=== PATIENT | female | born 1995 | race Caucasian/White ===

== ENCOUNTER → 2017-12-10 13:21 | Outpatient (CLI) | payer SELFPAY ==
[2017-12-10 15:52] LABS: Hematocrit 33.5 % (37-47); Hemoglobin 11.2 g/dl (12.0-15.0); Mean Corp Hgb Conc 33.4 g/gl (32-36); Mean Corpuscular Hgb 32.5 pg (27.0-32.0); Mean Corpuscular Volume 97.1 fL (81-99); Mean Platelet Vol. 9.9 fl (6.2-12.0); Platelet Count 201 K/mm3 (150-450); RBC Distribution Width CV 12.8 % (11.6-14.6); RBC Distribution Width SD 43.2 fl (35.1-43.9); Red Blood Count 3.45 M/mm3 (4.2-5.4); White Blood Count 6.4 K/mm3 (4.4-11.0)
[2017-12-10 15:55] LABS: Scan Indicated on CBC? Y/N NO
[2017-12-10 16:13] LABS: Glucose Challenge Gest 1H 50g 124 mg/dL (70-140)
== END ==
PROVIDERS: Visit Provider Obstetrics & Gynecology
DX: Z34.83 Encounter for supervision of other normal pregnancy, third trimester (principal)
CPT/HCPCS: 36415; 82950; 85027; 87077; 87086; 87088

== ENCOUNTER → 2018-01-22 10:45 | Outpatient (CLI) | payer SELFPAY ==
--- NOTE | 2018-01-22 10:45 | DT_ITS ---
This patient was seen during an EMR downtime January 21, 2018 - January 28, 2018. This patient may have a combination of paper and electronic documentation or all paper documentation. All documentation is viewable within the e-chart portion of [employer] for each patient visit.
[2018-01-25 13:27] LABS: Group B Strep DNA By PCR Negative (Negative); Internal Control PASS; Probe Check PASS; Specimen Processing Control PASS
== END ==
PROVIDERS: Visit Provider Obstetrics & Gynecology
DX: Z36.85 Encounter for antenatal screening for Streptococcus B (principal)
CPT/HCPCS: 87081; 87653

== ENCOUNTER 2018-02-23 23:30 | Inpatient (IN) | payer SELFPAY ==
[2018-02-23 21:15] VITALS: BMI 23.6
[2018-02-23 21:22] LABS: ROM Internal Control Test YES-OK TO RESULT pt. (Internal QC); ROM Patient Test Negative (Negative)
[2018-02-24] MEDS: Lactated Ringers 1,000 ML 50 ML IV ×2 (00:11→08:02)
[2018-02-24 00:25] LABS: ROM Internal Control Test YES-OK TO RESULT pt. (Internal QC); ROM Patient Test Negative (Negative)
[2018-02-24 00:34] LABS: Hematocrit 38.2 % (37-47); Hemoglobin 12.9 g/dl (12.0-15.0); Mean Corp Hgb Conc 33.8 g/gl (32-36); Mean Corpuscular Hgb 31.9 pg (27.0-32.0); Mean Corpuscular Volume 94.6 fL (81-99); Mean Platelet Vol. 9.9 fl (6.2-12.0); Platelet Count 202 K/mm3 (150-450); RBC Distribution Width CV 13.1 % (11.6-14.6); RBC Distribution Width SD 45.6 fl (35.1-43.9); Red Blood Count 4.04 M/mm3 (4.2-5.4); Scan Indicated on CBC? Y/N NO; White Blood Count 7.1 K/mm3 (4.4-11.0)
--- NOTE | 2018-02-24 01:23 | PCM.PN.BLA ---
Progress Note LABOR PROGRESS NOTE No complaints. Indicates prefers not to have pitocin. AVSS GEN - NAD, AAO x 3 FHR 120, moderate variability, + accelerations, no decelerations TOCO 0/10 min SVE 4/70/-3, soft, posterior, cephalic A/P: 22yo G1 @ 39 5/7wga for IOL for intermittent decelerations, Cat I FHR now. -Maternal and statuses reassuring -Membranes stripped as an alternative. Following discussion pt agrees to pitocin if no cervical change or consistent contractions in 2 hours. -If has SROM, may observe for 6 hours for labor to ensue prior to starting pitocin.
[2018-02-24] MEDS: 0.9% Saline Lock 10 ML Syringe IV ×2 (01:28→14:00)
[2018-02-24] MEDS: Oxytocin 30 units/NS 500 ml 30 UNITS/500 ML IV.SOLN IV (05:40)
--- NOTE | 2018-02-24 09:59 | PCM.PN.BLA ---
Progress Note LABOR PROGRESS NOTE Relates contractions are mild, she does not feel all of them. AVSS GEN - NAD, AAO x 3 FHR 140, moderate variability, + accelerations, no decelerations. TOCO 4-5/10 min SVE 5/75/-3, soft and posterior A/P: 22yo G1 @ 39 6/7wga, labor augmentation with pitocin, Cat I FHR -Continue pitocin as tolerated by mother and fetus -Amniotomy performed with clear fluid - and maternal status reassuring
[2018-02-24] MEDS: Oxytocin 30 units/NS 500 ml 30 UNITS/500 ML IV.SOLN 334 UNITS IV (11:55)
--- NOTE | 2018-02-24 12:11 | PCM.OB.VAG ---
- Problem List (1) 39 weeks gestation of Status: Acute (2) (spontaneous vaginal delivery) Status: Acute Vaginal Delivery Maternal Presentation: Medically Indicated Induction, - - Intermittent FHR decelerations present Method of Induction: Pitocin, Amniotomy Amniotic Membrane Rupture Type: Artificial Rupture of Membrane time: 02/24/18 0850h Amniotic Fluid Description: Clear Final JASON: 02/26/18 Final JASON Source: US <20 weeks Gestational age: 39 Weeks and 6 Days Date of Procedure: 02/24/18 Pre-Operative Diagnosis: 39 5/7wga Post-Operative Diagnosis: 39 5/7wga, Description of Procedure: Patient was FD/+ 4 station on my arrival with bulging perineum. She pushed to deliver a vigorous male infant in SHANTANU. The was placed on the maternal abdomen and further attended by nursery personnel. The cord was doubly clamped and cut at approximately 4 minutes of life. The placenta delivered spontaneously and appeared intact on inspection. A first degree perineal laceration with vaginal extension was repaired with 3-0 Vicryl Rapide with hemostasis attained following injection of 10cc of 1% lidocaine. Sponge and needle counts were correct x 2. weight 3513g Presentation: Vertex Placenta Disposition: [facility] Cord Vessel Description: 3 Vessels Cord Entanglement: None Estimated Blood Loss: 300 ml Infant A gender: Male (1 minute): 8 (5 minute): 9 Episiotomy Description: None Laceration: None Medications given after delivery: IV Pitocin Complications: None
--- NOTE | 2018-02-24 12:20 | DCINST_ITS ---
Discharge Diet: No Restrictions Discharge Activity: Return to Normal Activity, May Shower, May Take a Tub Bath May resume sexual activity in: 6 weeks Additional Activity Instructions:: Nothing in the vagina for 4-6 weeks. You may return to work/school in 6 weeks. Call your doctor if you observe: Fever of 101 or Higher, Inability to urinate, Inability to have a bowel movement, Using more than one pad per hour, Shortness of breath, Chest pain, Calf discomfort, Uncontrolled pain Additional Instructions: If you experience any of the following, contact your healthcare provider. * Bleeding that soaks a pad every hour for 2 hours * Fever 100.4 or higher * Unrelieved incision or abdominal pain * Swelling, redness, discharge or bleeding from your incision or episiotomy site * Your incision begins to separate * Problems urinating (including inability to urinate or burning while urinating) . * Visual changes * Severe headache * Flu-like symptoms * Pain or redness in one of both of your breasts * Pain, warmth, tenderness or swelling in your legs, especially the calf area * Frequent nausea and vomiting * Symptoms of depression or anxiety If you experience any of the following, call 911 or go to the nearest Emergency Room. * Chest pain * Problems breathing * Seizure activity * Partial or complete paralysis of a body part, slurred speech, weakness or drooping of the face, or a sudden inability to walk or hold your balance Allergies/Adverse Reactions: Allergies No Known Allergies Allergy (Verified 02/23/18 20:53) Medications to take at Discharge Vits [Prenatabs FA] 1 tablet PO DAILY 02/23/18 Ibuprofen 600 mg PO TID PRN #30 tab 02/24/18 The following prescriptions were given: Ibuprofen 600 mg PO TID PRN #30 tab PRN Reason: Pain Please Follow Up With: Cora Rangel MD When: 6 weeks Primary Care Physician: Care Physician,No Primary [Primary Care Provider] - Test Results: Test results from this visit will be discussed in further detail at your follow- up appointment, if applicable.
[2018-02-24] MEDS: Oxytocin 30 units/NS 500 ml 30 UNITS/500 ML IV.SOLN 167 UNITS IV (12:25)
[2018-02-24 16:12] VITALS: BP 118/59; PULSE 77; RESP 18; TEMP 36.9; O2SAT 98
[2018-02-24 20:00] VITALS: BP 127/79; PULSE 92; RESP 16; TEMP 37
[2018-02-24 23:21] VITALS: BP 113/72; PULSE 86; RESP 16; TEMP 37.3
[2018-02-25 04:05] VITALS: BP 114/65; PULSE 84; RESP 16; TEMP 36.8
--- NOTE | 2018-02-25 08:06 | PCM.PN.OB ---
Patient Problems: Active and Suspected Problems 39 weeks gestation of (Acute) (spontaneous vaginal delivery) (Acute) Subjective: No issues overnight. Infant is nursing well. Pain is minimal and lochia is moderate. No complaints. Objective: avss - Physical Exam General: Alert, Oriented x3, Cooperative, No apparent distress HEENT: Atraumatic, Normocephalic Lungs: Clear to auscultation, Normal air movement Cardiovascular: Regular rate, Regular Rhythm, Normal S1, Normal S2, No murmurs Abdomen: Soft, Non Tender, Non-Distended, - - Fundus firm and nontender, lochia moderate Extremities: No edema, No Calf Tenderness Neurological: Neuro grossly intact Psych/Mental Status: Normal Affect, Appropriate, Alert and oriented to time, place, person, mood and affect Vital Signs Temp Pulse Resp BP Pulse Ox 98.2 F 84 16 114/65 98 02/25/18 04:05 02/25/18 04:05 02/25/18 04:05 02/25/18 04:05 02/24/18 16:12 Oxygen Delivery Method Room Air Weight: 68.4 kg Body Mass Index (BMI) 23.6 Intake and Output for Last 24 Hours 02/23/18 02/24/18 02/25/18 23:59 23:59 23:59 Intake Total 2312 / 2312 Output Total 2350 / 2350 Balance -38 / -38 Medical Necessity - Tobacco Use Smoking Status: Never smoker Assessment/Plan All Active Problems 39 weeks gestation of (Acute) (spontaneous vaginal delivery) (Acute) 22yo PPD#1 s/p doing well. -Rh positive, RPR nr, HBsAg neg -Routine care - -May consider d/c home today if infant cleared for discharge and HIV, Rub, Hep C studies returned
[2018-02-25 08:15] VITALS: BP 120/73; PULSE 82; RESP 16; TEMP 37.1; O2SAT 95
[2018-02-25 10:27] LABS: HIV - WCH Non-Reactive (Nonreactive); Rubella IgG 240.8 IU/mL
[2018-02-25] MEDS: Prenatal Vits Tablet 1 TABLET PO (12:41)
[2018-02-25 13:49] VITALS: BP 107/61; PULSE 77; RESP 18; TEMP 37; O2SAT 98
[2018-02-25 19:30] VITALS: BP 113/65; PULSE 64; RESP 18; TEMP 36.8; O2SAT 98
[2018-02-26 01:57] VITALS: BP 110/71; PULSE 71; RESP 16; TEMP 36.8; O2SAT 97
--- NOTE | 2018-02-26 08:22 | PCM.PN.OB ---
Patient Problems: Active and Suspected Problems 39 weeks gestation of (Acute) (spontaneous vaginal delivery) (Acute) Subjective: No issues overnight and no obstetrician gynecologist complaints. Infant continues to nurse well. Kerry denies heavy lochia or discomfort. Objective: AVSS - Physical Exam General: Alert, Oriented x3, Cooperative HEENT: Atraumatic, Normocephalic Lungs: Clear to auscultation, Normal air movement Cardiovascular: Regular rate, No murmurs Abdomen: Soft, Non Tender, Non-Distended, - - fundus firm and nontender Extremities: No edema, No Calf Tenderness Neurological: Neuro grossly intact Psych/Mental Status: Normal Affect, Appropriate, Alert and oriented to time, place, person, mood and affect Vital Signs Temp Pulse Resp BP Pulse Ox 98.2 F 71 16 110/71 97 02/26/18 01:57 02/26/18 01:57 02/26/18 01:57 02/26/18 01:57 02/26/18 01:57 Oxygen Delivery Method Room Air Weight: 68.4 kg Body Mass Index (BMI) 23.6 Intake and Output for Last 24 Hours 02/24/18 02/25/18 02/26/18 23:59 23:59 23:59 Intake Total 2312 / 2312 Output Total 2350 / 2350 Balance -38 / -38 Laboratory Tests Past 24 Hrs 02/24/18 00:11 HIV 1&2 Antibody Non-Reactive Rubella IgG Antibody 240.8 Medical Necessity - Tobacco Use Smoking Status: Never smoker Assessment/Plan All Active Problems 39 weeks gestation of (Acute) (spontaneous vaginal delivery) (Acute) 22yo PPD#2 s/p doing well. -Rh positive, RPR nr, HBsAg neg -Routine care - -HIV neg, Rubella immune -Will d/c home
--- NOTE | 2018-02-26 08:25 | PN.OBGYN_ITS ---
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 Infant continues to nurse well. Kerry denies heavy lochia or discomfort. Objective: AVSS - Physical Exam General: Alert, Oriented x3, Cooperative HEENT: Atraumatic, Normocephalic Lungs: Clear to auscultation, Normal air movement Cardiovascular: Regular rate, No murmurs Abdomen: Soft, Non Tender, Non-Distended, - - fundus firm and nontender Extremities: No edema, No Calf Tenderness Neurological: Neuro grossly intact Psych/Mental Status: Normal Affect, Appropriate, Alert and oriented to time, place, person, mood and affect Vital Signs Temp Pulse Resp BP Pulse Ox 98.2 F 71 16 110/71 97 02/26/18 01:57 02/26/18 01:57 02/26/18 01:57 02/26/18 01:57 02/26/18 01:57 Oxygen Delivery Method Room Air Weight: 68.4 kg Body Mass Index (BMI) 23.6 Intake and Output for Last 24 Hours 02/24/18 02/25/18 02/26/18 23:59 23:59 23:59 Intake Total 2312 / 2312 Output Total 2350 / 2350 Balance -38 / -38 Laboratory Tests Past 24 Hrs 02/24/18 00:11 HIV 1&2 Antibody Non-Reactive Rubella IgG Antibody 240.8 Medical Necessity - Tobacco Use Smoking Status: Never smoker Assessment/Plan All Active Problems 39 weeks gestation of (Acute) (spontaneous vaginal delivery) (Acute) 22yo PPD#2 s/p doing well. -Rh positive, RPR nr, HBsAg neg -Routine care - -HIV neg, Rubella immune -Will d/c home
[2018-02-26 08:31] LABS: Hep C Antibodies 0.2 s/co ratio (0.0-0.9)
[2018-02-26 09:35] VITALS: BP 108/58; PULSE 72; RESP 18; TEMP 36.8
[2018-02-26] MEDS: Prenatal Vits Tablet 1 TABLET PO (12:37)
[2018-02-26 13:21] VITALS: BP 119/71; PULSE 79; RESP 16; TEMP 36.3
== END 2018-02-26 14:20 | disposition home or self-care (01) | DRG 775 ==
LOC: WPOUT 23:38
PROVIDERS: Admitting Provider Obstetrics & Gynecology; Visit Provider Obstetrics & Gynecology
DX: O76 Abnormality in fetal heart rate and rhythm complicating labor and delivery (principal); O70.0 First degree perineal laceration during delivery; Z3A.39 39 weeks gestation of pregnancy; Z37.0 Single live birth
CPT/HCPCS: 59025; 59050; 76815; 84112; 85027; 86703; 86762; 86803; 86850; 86900; 99218; J7120; A4216; G0378

== ENCOUNTER → 2019-02-11 | Outpatient (CLI) | payer SELFPAY ==
[2018-09-14 14:06] VITALS: BMI 18.8
[2019-02-11 17:31] LABS: Chlamydia Trachomatis by PCR Negative (Negative); Neisserai gonorrhoeae by PCR Negative (Negative); Probe Check PASS; Sample Adequacy Control PASS; Specimen Processing Control PASS
[2019-02-18 16:36] LABS: HPV Reflexed? NOT INDICATED
== END | disposition home or self-care (01) ==
LOC: LABSPEC 14:03
PROVIDERS: Visit Provider Obstetrics & Gynecology
DX: Z12.4 Encounter for screening for malignant neoplasm of cervix (principal); Z11.3 Encounter for screening for infections with a predominantly sexual mode of transmission
CPT/HCPCS: 87491; 87591; 88175; G0145

== ENCOUNTER → 2019-02-24 | Outpatient (CLI) | payer SELFPAY ==
[2018-09-14 14:06] VITALS: BMI 18.8
[2019-02-24 10:47] LABS: Absolute Lymphocyte Count 1.35 X10^3/ul (0.83-4.51); Absolute Neutrophil Count 4.1 X10^3/uL (2.0-7.7); Basophil# 0.02 X10^3/uL; Basophil% 0.3 % (0-1); Eosinophil# 0.05 X10^3/uL; Eosinophils% 0.8 % (0-5); Hematocrit 44.4 % (37-47); Hemoglobin 14.5 g/dl (12.0-15.0); Lymphocyte # 1.35 X10^3/ul (4.0); Lymphocyte % 22.8 % (19-41); Mean Corp Hgb Conc 32.7 g/gl (32-36); Mean Corpuscular Hgb 28.2 pg (27.0-32.0); Mean Corpuscular Volume 86.4 fL (81-99); Mean Platelet Vol. 9.9 fl (6.2-12.0); Monocyte# 0.42 X10^3/uL; Monocyte% 7.1 % (0-10); Neutrophil # 4.06 X10^3/uL (2.7-7.7); Neutrophil % 68.8 % (47-70); Platelet Count 292 K/mm3 (150-450); RBC Distribution Width CV 12.8 % (11.6-14.6); RBC Distribution Width SD 39.5 fl (35.1-43.9); Red Blood Count 5.14 M/mm3 (4.2-5.4); White Blood Count 5.9 K/mm3 (4.4-11.0)
[2019-02-24 10:51] LABS: POSITIVE COUNT NO; POSITIVE DIFFERENTIAL NO; POSITIVE MORPHOLOGY NO
[2019-02-24 11:02] LABS: Thyroid Stim Hormone (TSH) 0.93 uIU/mL (0.358-3.74)
[2019-02-24 11:50] LABS: HIV - WCH Non-Reactive (Nonreactive); Hepatitis B Surface Antigen Non-Reactive (Nonreactive); Hepatitis C Antibody Non-Reactive (Nonreactive); Rubella IgG 197.2 IU/mL
[2019-02-24 13:22] LABS: Color, Urine Yellow (Yellow); Glucose, Dipstick Normal (Normal); Ketone-Dipstick Negative (Negative); Leukocyte Esterase-Dipstick 100 /ul (Negative); Nitrite-Dipstick Negative (Negative); Occult Blood-Urine Negative /ul (Negative); Protein-Dipstick Negative (Negative); Specific Gravity, Urine 1.015 (1.002-1.030); Urine Bilirubin Dipstick Negative (Negative); Urine Clarity Sl. Cloudy (Clear); Urine Urobilinogen Normal (Normal); Urine pH 6.5 (5.0 - 8.0)
[2019-02-24 13:34] LABS: Amphetamine Urine VISTA NEGATIVE (<1000 ng/mL); Barbiturate Urine VISTA NEGATIVE (< 200 ng/mL); Benzodiazepine Urine VISTA NEGATIVE (< 200 ng/mL); Cocaine Urine VISTA NEGATIVE (< 300 ng/mL); Ecstacy Urine VISTA NEGATIVE (< 500 ng/mL); Methadone Urine VISTA NEGATIVE (< 300 ng/mL); PCP Urine VISTA NEGATIVE (< 25 ng/mL); THC Urine VISTA NEGATIVE (< 50 ng/mL); Vista UDS pH Range 6
[2019-02-28 02:57] LABS: Prenatal RPR NONREACTIVE (NONREACTIVE)
== END | disposition home or self-care (01) ==
LOC: WOBLAB 09:51
PROVIDERS: Visit Provider Obstetrics & Gynecology
DX: Z34.81 Encounter for supervision of other normal pregnancy, first trimester (principal)
CPT/HCPCS: 36415; 80307; 81002; 84443; 85025; 86703; 86762; 86803; 87340

== ENCOUNTER → 2019-06-20 | Outpatient (CLI) | payer SELFPAY ==
[2018-09-14 14:06] VITALS: BMI 18.8
[2019-06-20 10:42] LABS: Hematocrit 36.9 % (37-47); Mean Corp Hgb Conc 32.5 g/dL (32-36); Mean Corpuscular Hgb 31.4 pg (27.0-32.0); Mean Corpuscular Volume 96.6 fL (81-99); Mean Platelet Vol. 9.6 fl (6.2-12.0); Platelet Count 216 K/mm3 (150-450); RBC Distribution Width CV 14.4 % (11.6-14.6); RBC Distribution Width SD 50.9 fl (35.1-43.9); Red Blood Count 3.82 M/mm3 (4.2-5.4); White Blood Count 6.3 K/mm3 (4.4-11.0)
[2019-06-20 10:43] LABS: Glucose Challenge Gest 1H 50g 79 mg/dL (70-140)
== END | disposition home or self-care (01) ==
LOC: WOBLAB 08:57
PROVIDERS: Visit Provider Obstetrics & Gynecology
DX: Z34.82 Encounter for supervision of other normal pregnancy, second trimester (principal)
CPT/HCPCS: 36415; 82950; 85027

== ENCOUNTER → 2019-08-27 13:22 | Outpatient (CLI) | payer SELFPAY ==
[2018-09-14 14:06] VITALS: BMI 18.8
== END ==
PROVIDERS: Visit Provider Obstetrics & Gynecology
DX: Z36.85 Encounter for antenatal screening for Streptococcus B (principal)
CPT/HCPCS: 87081

== ENCOUNTER 2019-09-16 13:11 | Inpatient (IN) | payer SELFPAY ==
[2018-09-14 14:06] VITALS: BMI 18.8
[2019-09-16] MEDS: Lactated Ringers 1,000 ML 200 ML IV (10:33)
[2019-09-16] MEDS: Oxytocin 30 units/NS 500 ml 30 UNITS/500 ML IV.SOLN 334 UNITS IV (13:20)
[2019-09-16 13:28] VITALS: BMI 23.9
--- NOTE | 2019-09-16 14:00 | PCM.OPRPT ---
Vaginal Delivery Pt presented in active 2nd stage labor with cervical exam per RN of 100/+2 with BBOW; she was immediately taken to a labor room and prepared for delivery Amniotic Membrane Rupture Type: Artificial Rupture of Membrane time: 1316 Amniotic Fluid Description: Clear Final JASON: 09/22/19 Final JASON Source: US <20 weeks Gestational age: 39 Weeks and 1 Days Date of Procedure: 09/16/19 Pre-Operative Diagnosis: Active 2nd stage labor Post-Operative Diagnosis: Surgery/ Procedure Performed: Spontaneous Vaginal Delivery Type of Anesthesia: None Description of Procedure: CTSP shortly after she arrived on the unit with VE per RN of 100/+2 with BBOW and strong UTP; AROMed for clear fluid, pushed well and precipitously delivered a vigorous male OA to SHANTANU over a small first degree perineal laceration; shoulders followed easily; placed on mother's abdomen, dried, stimulated, APGARS 9/9; cord clamped x 2 by CNM and cut buy FOB under CNM supervision; placenta delivered spontaneously, Edwards mechanism, intact, 3-vessel cord; small first degree perineal laceration repaired with 3-0 Vicryl, good hemostasis obtained; EBL 150 Lap sponge, raytec, sharp and instrument count correct x 2 with RN Presentation: Vertex, SHANTANU Placental Delivery Description: Spontaneous Placenta Disposition: [facility] Cord Vessel Description: 3 Vessels Cord Entanglement: None Estimated Blood Loss: 150 Infant A gender: Male (1 minute): 9 (5 minute): 9 Episiotomy Description: None Laceration: Perineal Extension/lac, 1st degree Medications given after delivery: IV Pitocin
[2019-09-16 14:06] LABS: Absolute Lymphocyte Count 0.94 X10^3/uL (0.83-4.51); Absolute Neutrophil Count 6.9 X10^3/uL (2.0-7.7); Basophil# 0.01 X10^3/uL; Basophil% 0.1 % (0-1); Eosinophil# 0.02 X10^3/uL; Eosinophils% 0.2 % (0-5); Hematocrit 38.6 % (37-47); Hemoglobin 12.6 g/dL (12.0-15.0); Lymphocyte # 0.94 X10^3/ul (4.0); Mean Corp Hgb Conc 32.6 g/dL (32-36); Mean Corpuscular Hgb 30.6 pg (27.0-32.0); Mean Corpuscular Volume 93.7 fL (81-99); Monocyte# 0.55 X10^3/uL; Monocyte% 6.5 % (0-10); NRBC Flagged by Analyzer 0 % (0-5); Neutrophil # 6.93 X10^3/uL (2.7-7.7); Neutrophil % 81.5 % (47-70); Platelet Count 246 K/mm3 (150-450); RBC Distribution Width SD 44.2 fl (35.1-43.9); Red Blood Count 4.12 M/mm3 (4.2-5.4); White Blood Count 8.5 K/mm3 (4.4-11.0)
[2019-09-16 16:23] VITALS: BP 129/76; PULSE 67; RESP 16; TEMP 36.6; O2SAT 98
[2019-09-16 19:50] VITALS: BP 126/86; PULSE 96; RESP 16; TEMP 36.9
[2019-09-17 00:09] VITALS: BP 118/77; PULSE 81; RESP 16; TEMP 36.7
[2019-09-17 03:50] VITALS: BP 125/83; PULSE 71; RESP 16; TEMP 36.6
[2019-09-17 04:06] LABS: Hematocrit 33.1 % (37-47); Mean Corp Hgb Conc 33.2 g/dL (32-36); Mean Corpuscular Hgb 30.7 pg (27.0-32.0); Mean Corpuscular Volume 92.5 fL (81-99); Mean Platelet Vol. 9.9 fl (6.2-12.0); Platelet Count 224 K/mm3 (150-450); RBC Distribution Width SD 43.4 fl (35.1-43.9); Red Blood Count 3.58 M/mm3 (4.2-5.4); White Blood Count 9.2 K/mm3 (4.4-11.0)
--- NOTE | 2019-09-17 07:00 | PCM.PN.OB ---
Subjective: No issues overnight. Was able to get a bit of sleep. feeding well. Denies heavy lochia or pain. Objective: AVSS - Physical Exam Vitals/I&O's: Vital Signs Temp Pulse Resp BP Pulse Ox 97.9 F 96 16 114/80 98 09/17/19 08:15 09/17/19 08:15 09/17/19 08:15 09/17/19 08:15 09/16/19 16:23 Oxygen Delivery Method Room Air Weight: 69.4 kg Body Mass Index (BMI) 23.9 Intake and Output for Last 24 Hours 09/15/19 09/16/19 09/17/19 23:59 23:59 23:59 Intake Total 1444 / 1444 Output Total 1100 / 1100 Balance 344 / 344 General: Alert, Oriented x3, Cooperative, No apparent distress HEENT: Atraumatic, Normocephalic Lungs: Clear to auscultation, Normal air movement Cardiovascular: Regular rate, Regular Rhythm, Normal S1, Normal S2 Abdomen: Soft, Non Tender, Non-Distended, - - fundus firm and nontender Extremities: No edema, No Calf Tenderness Neurological: Neuro grossly intact Psych/Mental Status: Normal Affect, Appropriate, Alert and oriented to time, place, person, mood and affect Laboratory Results 09/16/19 13:45: WBC 8.5, RBC 4.12 L, Hgb 12.6, Hct 38.6, MCV 93.7, MCH 30.6, MCHC 32.6, RDW Std Deviation 44.2 H, RDW Coeff of Lena 13.0, Plt Count 246, MPV 10.0, Immature Gran % (Auto) 0.700, Neut % (Auto) 81.5 H, Lymph % (Auto) 11.0 L, [place] % (Auto) 6.5, Eos % (Auto) 0.2, Baso % (Auto) 0.1, Absolute Neuts (auto) 6.9, Absolute Lymphs (auto) 0.94, Nucleated RBC % 0 09/16/19 13:45: Blood Type A POSITIVE, Antibody Screen NEGATIVE 09/17/19 04:00: WBC 9.2, RBC 3.58 L, Hgb 11.0 L, Hct 33.1 L, MCV 92.5, MCH 30.7, MCHC 33.2, RDW Std Deviation 43.4, RDW Coeff of Lena 13.0, Plt Count 224, MPV 9.9 Current Medications Acetaminophen (Tylenol) 1,000 mg PO Q8H PRN PRN PRN Reason: Pain Score 1-3/10 Bisacodyl (Dulcolax) 10 mg RECTAL UD PRN PRN Reason: If no BM Dibucaine (Dibucaine) 1 applic TOPICAL TID PRN PRN; Protocol PRN Reason: Discomfort Hydrocortisone (Hytone) 1 applic TOPICAL TID PRN PRN; Protocol PRN Reason: Discomfort Ibuprofen (Motrin) 600 mg PO Q6H PRN PRN PRN Reason: Pain Score 1-3/10 Methylergonovine Maleate (Methergine) 0.2 mg IM X1 PRN PRN Reason: Excess bleeding/uterine atony Ondansetron HCl (Zofran) 4 mg IV Q4H PRN PRN PRN Reason: Nausea Senna/Docusate Sodium (Senokot-S, Fátima-Colace) 1 - 2 tablet PO DAILY PRN PRN PRN Reason: Constipation Simethicone (Mylicon) 80 mg PO PCHS PRN PRN Reason: Indigestion/Stomach pain Sodium Chloride () 5 - 15 ml IV UD PRN PRN Reason: SALINE FLUSH Medical Necessity - Tobacco Use Smoking Status: Never smoker Assessment/Plan All Active Problems (Last Updated 09/14/18 @ 14:10 by Brayan Boss) 39 weeks gestation of (Acute) (spontaneous vaginal delivery) (Acute) 24yo PPD#1 s/p doing well. -Rh positive -Routine care -
--- NOTE | 2019-09-17 08:00 | PCM.HP.BLA ---
History and Physical Date of Admission: 09/16/19 This not is for 09/16/19 at [facility] ANTEPARTUM RECORD - HISTORY AND PHYSICAL (09/17/2019) Name: KERRY JAFFE OB Physician: ANCELMO 's Physician: Katie ...................................................................... : 1995 Age: 24 Address: [address] [place] [address] Phone: H) [phone] (O) [phone] Insurance Carrier: Emergency Contact: NICHO [phone] ...................................................................... Kerry is a 24yo at 39w1d gestation by L=10w0d US who presented to labor and delivery in active 2nd stage labor; upon examination by RN she was found to be completely effaced and dilated with a BBOW; course has been uneventful. Final JASON: 09/22/19 By Ultrasound: PARITY: (G-Total Pregnancies P-Fullterm,Premature,Induced AB,Spont AB, Ectopics, Multiple,Living) JASON CONFIRMATION: By LMP: 12/16/18 Final JASON: 09/22/19 OB PROBLEM LIST: Declines msAFP and CF testing EPDS = 6 Working FT and having a small child is her biggest stressor H/O frequent UTIs Plans natural childbirth Self Pay ALLERGIES: No Known Drug Allergies MEDICATIONS: + DHA 28 mg iron- 975 mcg-200 mg combo pack 1 daily SOCIAL HISTORY: Smoking - Never Alcohol Use - denies drinking Diet - moderate, balanced diet Lifestyle - Exercise - active work Employer - [employer] 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 Illicit Drug Use - denies use of street drugs Sexual Activity - Residence - lives with Place of - [place] Hours Worked - 40 hours per week Spouse-Sig Other Name - Nicho Spouse-Sig Other Occupation - safety advisor Spouse-Sig Other Phone No - [phone] Children Name(s) - Gianni PRIOR DELIVERY HISTORY DEL DATE GEST LAB WT LB WT OZ TYPE ANES LABOR TX 08 Mar 06 39 [phone] 12 Vag Local No ANTEPARTUM FLOW CHART VISIT GE RTC FU F F IL U U DATE WK MD WKS HT PN HR M SS BP ED WT IL GL D EF ST __ ____ ___ __ __ ___ __ __ __ ___ __ __ __ ___ __ Aug KW 1 35 + + 106/80 sl 154 tr - ft TH me Aug KW 1 36 + + 116/82 sl 155 08 Aug SHM 1 35 V + + 110/72 sl 152 tr - 2 50 -3 Jul SHM 2 32 V + + 110/72 sl 149 1+ - 21 Jul 19 SHM 2 28 ? + + 126/86 sl 142 - - 01 Jul 15 ELB 4 25 - + + 126/78 sl 140 - - 04 Jun 10 SHM 4 22 + + 110/80 0 135 tr - 09 May 08 SHM 4 19 + + 90/60 0 129 tr - 05 Apr 02 SHM 4 14 + 0 122/68 0 126 - - 08 Feb 26 SHM 4 on 0 126/50 0 123 tr - ANTEPARTUM NOTE(S): Sep 12 2019: feeling well. Cervix check. Sep 03 2019: Aug 27 2019: GBS today, LARC declined Aug 08 2019: see note Jul 10 2019: feeling well. Jun 20 2019: doing well, glucola today May 23 2019: feeling well. Fatigue, pains in abdomen. Apr 28 2019: feeling well. Questions about traveling Mar 24 2019: mild nausea in AM, muscle aches Feb 24 2019: mild nausea states tolerable, NOB and u/s today COMPREHENSIVE ANTEPARTUM NOTE(S): Sep 12 2019: H taken to OB.tkg Sep 12 2019: NST per order of Ariella Wellington CNM. EEFM/NST explained. NST reactive, read per Ariella Wellington CNM. AW Sep 12 2019: Feeling well; reports active FM; denies UCs, VB, LOF; FHR per doppler from 150s to 90s noted, NST performed, reactive s<d.US performed, fetus AGA and normal CARRIE, irregularity noted in brain, Dr. Danyel Good to reveiw and contact patient; discussed warning signs, s/s Labor, when to call/come in; RTO 1 week for PNV - KVW Sep 03 2019: Feeling well; reports active FM; denies UCs, VB, LOF; discussed warning signs, s/s Labor; RTO 1 week for PNV - KVW Aug 08 2019: PT had influenza, declines TDap. Aug 08 2019: Discomforts of . Discussed maternity belt. Jun 20 2019: glucola 79 (WNL) and hgb 12.0 g/dl. Both WNL. Informed by phone. EB May 23 2019: LBP and lower abdominal pain. denies contractions. Discussed support belt, sleep positioning for support. Glucola info given. Discussed flu shot. Apr 28 2019: Anatomy wnl, EFW 29th%, Placenta ANTERIOR. MALE - circ planned. Kerry c/o congestion with difficulty earing in L. ear. No improvement of hearing with Claritin. BPs wnl, may use Claritin D. If no improvement with that or otc peroxide gtt in 1 week f/u with PCP. Mar 24 2019: labs wnl, Rubella immune, Rh positive. Discussed FM. Feb 24 2019: Discussed aneuploidy screening, timing, r/b, limitation including false positives, false negative. US AGA - JASON 09/22/19. Feb 24 2019: Kerry is here for her NOB visit at 10 w 0 d, she is a with an JASON of 09/22/2019. She and her , Nicho, have a one year old son who was delivered by . Past history updated. She plans to deliver at [facility], prefers natural childbirth, and she will breastfeed. She is familiar with office practice patterns, including labs that will be collected today. Emergencies/danger signs to report, contacting the office after hours, round ligament pain, reporting s/s of a UTI, and common OTC medications approved/not approved for use during reviewed. Kerry is a life long non-smoker, and she denies use of drugs or ETOH. Genetic Screening form completed, no significant history noted. She declines msAFP and CF testing, and consent signed as such. Kerry takes an OTC vitamin containing DHA and states that she tolerates this well. She reports mild tolerable nausea, and that she has not vomited. Reviewed measures that may help minimize nausea, including small frequent meals with proteins included throughout the day, and adequate water hydration of at least one gallon every 24 hours. 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 EPDS today = 6. dietary and water needs reinforced, including caloric needs, recommended weight gain, limiting empty calories, and limiting caffeine to one cup a day. Reviewed lifting restrictions, recommended physical activity, and Kegel exercises. Kerry states that she understands all information provided during NOB visit, and she has no questions following same. To [facility] draw station for labs. AW New Feb 24 2019: A positive RI, Hgb 14.5 g/dl. TSH wnl Tox neg. HepB, HepC, RPR, HIV neg. EB Feb 19 2019: Pap WNL. EB Feb 12 2019: GC and chlamydia cultures NEG EB Feb 11 2019: Kerry is a 23 yr old Gr2, P1 here w/her , Nicho and their nearly year old son, Gianni for a Missed Menses. She has had 2 periods since stopping nursing. LMP 12/16/18. By LMP, she would be 8 wks 1 day, JASON 09/22/19. Reporting periodic queeziness, no vomiting. Reports no vomiting 1st . Taking a PNV. Non-smoker. Hx 1st and reports uncomplicated . No abdominal surgeries. No record of pap done here. Pap, GC, Chlamydia cultures this visit. informational materials given and reviewed otc meds ok to take. NO NSAIDS. kbm REVIEW OF SYSTEMS: GENERAL - Denies fever, or chills SKIN - Denies rash, new skin lesions, or change in moles EYES - Denies blurred vision, or change in visual acuity EARS - Denies ear pain, or difficulty hearing NOSE - Denies nasal congestion, discharge, or bleeding MOUTH - Denies sore throat, or difficulty swallowing NECK - Denies pain or swelling RESPIRATORY - Denies shortness of breath, cough, wheezing CARDIOVASCULAR - Denies palpitations, chest pain, orthopnea, PND, peripheral edema, syncope or claudication GASTROINTESTINAL - Denies nausea, vomiting, diarrhea, constipation, Denies abdominal pain, melena and or bright red blood GENITOURINARY - Denies dysuria, frequency of urination, urgency, or hesitancy MUSCULOSKELETAL - Denies joint or muscle pain, or back pain NEUROLOGICAL - Denies localized numbness, weakness, or tingling PSYCHIATRIC - Denies depression, anxiety, substance abuse or suicide attempts ENDOCRINE - Denies heat or cold intolerance, weight loss or gain, increasing thirst HEMATO-IMMUNOLOGIC - Denies easy bruising, bleeding, oral ulcerations or recurrent infections GENETICS SCREENING: Age 35+ years: No Thalassemia: No Neural Tube Defect: No Down Syndrome: No ZANE-SACHS: No Sickle Cell Disease: No Hemophilia: No Musc. Dystrophy: No Cystic Fibrosis: No-declines screening Karlie Chorea: No Mental Retardation: No Fragile X: No Other genetic: No Other defects: No SABs/still births: No Drugs since LMP: No Comments: FOB's dad had cleft palate INFECTION HISTORY: High risk AIDS: No High risk Hepatitis: No Exposed to TB: No Exposed to Herpes: No Rash/viral illness since LMP: No History of STD: No MENSTRUAL HISTORY: *Menarche (Age Onset): 11* PAST SUMMARY: PARITY: 1. Total Pregnancies............ 2 2. Full Term Pregnancies........ 1 3. Premature.................... 0 4. Abortions - Induced.......... 0 5. Abortions - Spontaneous...... 0 6. Ectopics..................... 0 7. Multiple Births.............. 0 8. Living Children.............. 1 PAST #1: Date of :.................. 02/24/18 Gestation Weeks:................ 39 Length of labor(hours):......... 5 Sex:............................ M Weight-lbs:............... 7 Weight-oz:................ 12 Type of Delivery:............... Vag Type of Anesthesia:............. Local Place of Delivery:.............. Saman Treatment of Labor?:.... No Comment: IOL Labs for : KERRY JAFFE since 12/26/2018 ORDER DATEIN DESCRIPTION VALUE UNITS RANGE A+ COMMENT CBC-COMPLETE BLOOD CNT NO DIFF 09/17/19 NOTE Original Ordering Provider: LIZZY Wellington WBC 9.2 K/mm3 4.4-11.0 RBC 3.58 M/mm3 4.2-5.4 L HGB 11.0 g/dL 12.0-15.0 L HCT 33.1 % 37-47 L MCV 92.5 fL 81-99 MCH 30.7 pg 27.0-32.0 MCHC 33.2 g/dL 32-36 RDW CV 13.0 % 11.6-14.6 RDW SD 43.4 fl 35.1-43.9 PLT 224 K/mm3 150-450 MPV 9.9 fl 6.2-12.0 TYPE AND SCREEN 09/16/19 Reason for Type AND Screen/Red Cells: Labor [facility]~[address] [place], [address]~ BLOOD TYPE GEL A POSITIVE N ANTIBODY SCREEN NEGATIVE N Reviewed by MAGNUS CBC W/DIFF, AUTOMATED 09/16/19 NOTE Original Ordering Provider: Magnus Rangel WBC 8.5 K/mm3 4.4-11.0 RBC 4.12 M/mm3 4.2-5.4 L HGB 12.6 g/dL 12.0-15.0 HCT 38.6 % 37-47 MCV 93.7 fL 81-99 MCH 30.6 pg 27.0-32.0 MCHC 32.6 g/dL 32-36 RDW CV 13.0 % 11.6-14.6 RDW SD 44.2 fl 35.1-43.9 H PLT 246 K/mm3 150-450 MPV 10.0 fl 6.2-12.0 NEUT% 81.5 % 47-70 H LY% 11.0 % 19-41 L MONO% 6.5 % 0-10 EO% 0.2 % 0-5 BASO% 0.1 % 0-1 IM GRAN % 0.700 % 0.0-0.9 IG% - Immature Granulocytes (promyelocytes, myelocytes and metamyelocytes) > 1% indicates that a LEFT SHIFT is Present. ABSOLUTE NEUT 6.9 X10 3/uL 2.0-7.7 ABSOLUTE LYMPH 0.94 X10 3/uL 0.83-4.51 NRBC, FLAGGED 0 % 0-5 Reviewed by MAGNUS CULTURE, GROUP B STREPTOCOCCUS 08/27/19 NOTE Original Ordering Provider: Magnus Rangel Comments: VAGINAL/RECTAL KAUSHIK Culture Group B Beta Streptococcus is not isolated. Reviewed by MAGNUS GLUCOSE CHALLENGE GEST 1H 50G 06/20/19 NOTE Original Ordering Provider: Aida Irizarry GLU GEST 50G 1H 79 mg/dL 70-140 CBC-COMPLETE BLOOD CNT NO DIFF 06/20/19 NOTE Original Ordering Provider: Aida Irizarry WBC 6.3 K/mm3 4.4-11.0 RBC 3.82 M/mm3 4.2-5.4 L HGB 12.0 g/dL 12.0-15.0 HCT 36.9 % 37-47 L MCV 96.6 fL 81-99 MCH 31.4 pg 27.0-32.0 MCHC 32.5 g/dL 32-36 RDW CV 14.4 % 11.6-14.6 RDW SD 50.9 fl 35.1-43.9 H PLT 216 K/mm3 150-450 MPV 9.6 fl 6.2-12.0 Reviewed by AIDA RPR 02/24/19 NOTE Original Ordering Provider: Magnus Rangel RPR NONREACTIVE NONREACTIVE Reviewed by AIDA URINE DRUG SCREEN (VISTA) 02/24/19 NOTE Original Ordering Provider: Magnus Rangel TO BE CONFIRMED CONFIRMATORY TESTING FOR ALL POSITIVE URINE DRUG SCREEN RESULTS WILL ONLY BE SENT OUT UPON PHYSICIAN ORDER. VISTA Urine Drug Screen methods provide only preliminary analytical test results. A more specific alternate chemical method must be used in order to obtain a confirmed analytical result. Gas chromatography/mass spectrometery (GC/MS) is the preferred confirmatory method. Clinical consideration and professional judgement should be applied to any drug of abuse test result, particularly when preliminary positive results are used. URINE TCA TESTING MUST BE ORDERED SEPARATELY. USE TEST MNEMONIC: [facility] VISTA UDS PH 6 AMPHETAMINES NEGATIVE <1000 ng/mL BARBITIURATES NEGATIVE < 200 ng/mL BENZODIAZIPINE NEGATIVE < 200 ng/mL COCAINE NEGATIVE < 300 ng/mL ECSTACY NEGATIVE < 500 ng/mL METHADONE NEGATIVE < 300 ng/mL OPIATES NEGATIVE < 300 ng/mL PCP NEGATIVE < 25 ng/mL THC NEGATIVE < 50 ng/mL Reviewed by AIDA URINALYSIS, ROUTINE (DIPSTICK) 02/24/19 NOTE Original Ordering Provider: Magnus Rangel COLOR Yellow Yellow CLARITY Sl. Cloudy Clear GLUCOSE, UR Normal mg/dl Normal BILIRUBIN URINE Negative mg/dL Negative KETONE UR Negative mg/dl Negative SP.GR. DIPSTX 1.015 1.002-1.030 PH UR 6.5 5.0 - 8.0 PROT DIPSTX Negative mg/dl Negative UROBILI Normal mg/dl Normal NITRITE UR Negative Negative OCCULT BLOOD-UR Negative /ul Negative LEUK ESTERASE 100 /ul Negative H Reviewed by AIDA T AND S-NO CHARGE W/PNP 02/24/19 Reason for Type AND Screen/Red Cells: Surgery? N [facility]~[address] [place], [address]~ BLOOD TYPE GEL A POSITIVE N AB SCREEN GEL NEGATIVE N Reviewed by AIDA HEPATITIS C ANTIBODY 02/24/19 NOTE Original Ordering Provider: Magnus Rangel HEPATITIS C AB Non-Reactive Nonreactive Non Reactive: < 0.8 Equivocal: >/= 0.8 to < 1.0 Reactive: >/= 1.0 The CDC recommends that a reactive/equivocal HCV antibody result be followed up by the HCV Nucleic Acid Amplification test ([id number]) Reviewed by AIDA HEPATITIS B SURFACE ANTIGEN 02/24/19 NOTE Original Ordering Provider: Magnus Rangel HEPB SURFACE AG Non-Reactive Nonreactive Reviewed by AIDA HIV - H 02/24/19 NOTE Original Ordering Provider: Magnus Rangel HIV [facility] Non-Reactive Nonreactive Reviewed by AIDA RUBELLA IGG 02/24/19 NOTE Original Ordering Provider: Magnus Rangel RUBELLA IGG 197.2 IU/mL Antibody results Interpretation of Immune Status < 5 IU/ml Presumed Non-immune 5 - < 10 IU/ml Equivocal > or = 10 IU/ml Presumed Immune Reviewed by AIDA THYROID STIM HORMONE (TSH) 02/24/19 NOTE Original Ordering Provider: Magnus QuinteroBenjaminFlorentino TSH 0.93 uIU/mL 0.358-3.74 Reviewed by AIDA CBC W/DIFF, AUTOMATED 02/24/19 NOTE Original Ordering Provider: Magnus Rangel WBC 5.9 K/mm3 4.4-11.0 RBC 5.14 M/mm3 4.2-5.4 HGB 14.5 g/dl 12.0-15.0 HCT 44.4 % 37-47 MCV 86.4 fL 81-99 MCH 28.2 pg 27.0-32.0 MCHC 32.7 g/gl 32-36 RDW CV 12.8 % 11.6-14.6 RDW SD 39.5 fl 35.1-43.9 PLT 292 K/mm3 150-450 MPV 9.9 fl 6.2-12.0 NEUT% 68.8 % 47-70 LY% 22.8 % 19-41 MONO% 7.1 % 0-10 EO% 0.8 % 0-5 BASO% 0.3 % 0-1 IM GRAN % 0.200 % 0.0-0.9 IG% - Immature Granulocytes (promyelocytes, myelocytes and metamyelocytes) > 1% indicates that a LEFT SHIFT is Present. ABSOLUTE NEUT 4.1 X10 3/uL 2.0-7.7 ABSOLUTE LYMPH 1.35 X10 3/ul 0.83-4.51 Reviewed by AIDA PAP I-G W/ REFLEX TO HR HPV 02/11/19 NOTE Original Ordering Provider: aMuro Can DIAGN . NEGATIVE FOR INTRAEPITHELIAL LESION OR MALIGNANCY. THIS SPECIMEN WAS RESCREENED PART OF OUR SQL ANALYST PROGRAM. ADEQ . Satisfactory for evaluation. Endocervical and/or squamous metaplastic cells (endocervical component) are present. PERFORM . Kee Dawn, Facs Teacher (ASCP) QC REV . Ingrid Hinkle, Facs Teacher (ASCP) TEST METHOD . This liquid based ThinPrep(R) pap test was screened with the use of an image guided system. COMM . . PAPSMR . The Pap smear is a screening test designed to aid in the detection of premalignant and malignant conditions of the uterine cervix. It is not a diagnostic procedure and should not be used as the sole means of detecting cervical cancer. Both false-positive and false-negative reports do occur. HPV RFLX . The HPV DNA reflex criteria were not met with this specimen result therefore, no HPV testing was performed. Performed at: [address] [id number] Media/Instructional Designer: Cira Ford MD, Phone: [phone] Reviewed by AIDA EL/JOVANNA [facility] BY PCR 02/11/19 NOTE Original Ordering Provider: Mauro GATES [facility] PCR Negative Negative JOVANNA BY PCR Negative Negative Reviewed by AIDA PROVIDER SIGNATURE ( REQUIRED) PHYSICAL EXAMINATION General Appearence: 24 yo female in no acute distress Vital Signs: AF, VSS Heart: RRR without rubs or gallops Lungs: CTA x 2 Breasts: deferred Abdomen: gravid Pelvis: Cervix: 10/10/+2, BBOW Presentation: cephalic Fetus: Size: AGA Movement: present Heart: 120 baseline, moderate variability, with accels no decels UCs: Impression: 24yo at 39w1d gestation by L=10w0d US Active 2nd stage labor, delivery imminent GBS negative A positive Plan: Admitted for delivery with subsequent AROM for clear fluid and precipitous delivery of a vigorous male
[2019-09-17 08:15] VITALS: BP 114/80; PULSE 96; RESP 16; TEMP 36.6
[2019-09-17 12:15] VITALS: BP 129/73; PULSE 96; RESP 16; TEMP 36.6
[2019-09-17 16:45] VITALS: BP 124/82; PULSE 84; RESP 16; TEMP 36.4
--- NOTE | 2019-09-17 17:25 | DCINST_ITS ---
Discharge Diet: No Restrictions Discharge Activity: Return to Normal Activity, No Restrictions, May Drive, May Shower, May Take a Tub Bath May resume sexual activity in: 6-8 weeks Weight Bearing Status: Weight bearing as tolerated Lifting Restrictions: Nothing heavier than the baby for 6 weeks Additional Activity Instructions:: Minimize cooking,cleaning, shopping and long car trips for 2 weeks; try to get at least 8 hours sleep in 24 hours for the next two weeks; sleep when the baby sleeps Call your doctor if your incision/area has: Continuous Slow Oozing, Sudden Increased Bleeding, Increased Pain/ Swelling, Increased Redness, Foul Smelling Discharge, Swelling at the incision site Call your doctor if you observe: Fever of 101 or Higher, Change in Color, Inability to urinate, Using more than one pad per hour, Shortness of breath, Dizziness, Fainting spells, Swelling in the ankles, Chest pain, Calf discomfort, Uncontrolled pain Additional Instructions: If you experience any of the following, contact your healthcare provider. * Bleeding that soaks a pad every hour for 2 hours * Fever 100.4 or higher * Unrelieved incision or abdominal pain * Swelling, redness, discharge or bleeding from your incision or episiotomy site * Your incision begins to separate * Problems urinating (including inability to urinate or burning while u rinating). * Visual changes * Severe headache * Flu-like symptoms * Pain or redness in one of both of your breasts * Pain, warmth, tenderness or swelling in your legs, especially the calf area * Frequent nausea and vomiting * Symptoms of depression or anxiety If you experience any of the following, call 911 or go to the nearest Emergency Room. * Chest pain * Problems breathing * Seizure activity * Partial or complete paralysis of a body part, slurred speech, weakness or drooping of the face, or a sudden inability to walk or hold your balance Allergies/Adverse Reactions: Allergies No Known Allergies Allergy (Verified 02/23/18 20:53) Medications to take at Discharge Vits [Prenatabs FA] 1 tablet PO DAILY 02/23/18 Ibuprofen 600 mg PO TID PRN #30 tab 02/24/18 Please Follow Up With: Dixie Wellington CNM When: in six weeks for your pospartum checkup Primary Care Physician: Care Physician,No Primary [Primary Care Provider] - Test Results: Test results from this visit will be discussed in further detail at your follow- up appointment, if applicable.
== END 2019-09-17 18:30 | disposition home or self-care (01) | DRG 807 ==
PROVIDERS: Admitting Provider Advanced Practice Midwife; Referring Provider Obstetrics & Gynecology; Visit Provider Advanced Practice Midwife
DX: O70.0 First degree perineal laceration during delivery (principal); Z37.0 Single live birth; Z3A.39 39 weeks gestation of pregnancy
CPT/HCPCS: 59050; 85025; 85027; 86850; 86900; 86901; 99218; J7120; G0378

== ENCOUNTER → 2021-04-05 07:45 | Outpatient (CLI) | payer SELFPAY ==
--- NOTE | 2021-04-05 07:47 | US_ITS ---
STUDY: ULTRASOUND OF THE FEMALE PELVIS - COMPLETE REASON FOR EXAM: Female, 26 years old. ABD PAIN -- PELVIC PAIN LMP: 02/11/2021. TECHNIQUE: Transabdominal and Transvaginal TECHNICAL QUALITY: Adequate. COMPARISON: None. FINDINGS: The uterus is anteverted and is in a midline position. The uterus measures 9.1 cm x 5.2 cm x 3.6 cm. Normal uterine cervix. The endometrium measures 9.8 mm in thickness, and is hyperechoic. There is no demonstrated endometrial mass. There is no demonstrated myometrial mass. I.U.D. - The patient does not have an I.U.D. The right ovary is visualized. The right ovary measures 3.6 cm x 2.2 cm x 2.6 cm. There is a 2.3 cm by 2.2 cm x 1.7 cm corpus albicans in the right ovary. There is no visualized right adnexal mass or complex lesion. There is normal arterial and normal venous vascularity. The left ovary is visualized. The left ovary measures 3.2 cm x 1.7 cm x 1.5 cm. There is no left ovarian cyst or ovarian mass. There is no visualized left adnexal mass or complex lesion. There is normal arterial and normal venous vascularity. There is no fluid in the cul-de-sac. The pre void volume of the bladder was 385 ml. US/Pelvic (Non ) IMPRESSION: 2.3 cm x 2.2 cm x 1.7 cm corpus albicans in the right ovary. Electronically Signed: Dieudonne Guevara MD at 15:47 EDT , Service support ,
--- NOTE | 2021-04-05 07:47 | US_ITS ---
STUDY: ULTRASOUND OF THE FEMALE PELVIS - COMPLETE REASON FOR EXAM: Female, 26 years old. ABD PAIN -- PELVIC PAIN LMP: 02/11/2021. TECHNIQUE: Transabdominal and Transvaginal TECHNICAL QUALITY: Adequate. COMPARISON: None. FINDINGS: The uterus is anteverted and is in a midline position. The uterus measures 9.1 cm x 5.2 cm x 3.6 cm. Normal uterine cervix. The endometrium measures 9.8 mm in thickness, and is hyperechoic. There is no demonstrated endometrial mass. There is no demonstrated myometrial mass. I.U.D. - The patient does not have an I.U.D. The right ovary is visualized. The right ovary measures 3.6 cm x 2.2 cm x 2.6 cm. There is a 2.3 cm by 2.2 cm x 1.7 cm corpus albicans in the right ovary. There is no visualized right adnexal mass or complex lesion. There is normal arterial and normal venous vascularity. The left ovary is visualized. The left ovary measures 3.2 cm x 1.7 cm x 1.5 cm. There is no left ovarian cyst or ovarian mass. There is no visualized left adnexal mass or complex lesion. There is normal arterial and normal venous vascularity. There is no fluid in the cul-de-sac. The pre void volume of the bladder was 385 ml. US/Transvaginal Non- IMPRESSION: 2.3 cm x 2.2 cm x 1.7 cm corpus albicans in the right ovary. Electronically Signed: Dieudonne Guevara MD at 15:47 EDT , Service support ,
== END ==
LOC: OPUS 07:46 → US 07:46
PROVIDERS: PCP Family Medicine; Referring Provider Family Medicine; Visit Provider Family Medicine
DX: N92.6 Irregular menstruation, unspecified (principal); R10.12 Left upper quadrant pain; R10.32 Left lower quadrant pain
CPT/HCPCS: 76830; 76856; 93976

== ENCOUNTER → 2021-04-07 08:05 | Outpatient (CLI) | payer SELFPAY ==
--- NOTE | 2021-04-07 08:07 | US_ITS ---
STUDY: ABDOMINAL ULTRASOUND REASON FOR EXAM: Female, 26 years old. Left lower quadrant and left upper quadrant pain. TECHNIQUE: Transabdominal ultrasound was performed with real-time and static horne scale imaging. TECHNICAL QUALITY: Adequate. COMPARISON: None. FINDINGS: Liver: The liver measures 15.7 cm. There is normal echogenicity of the liver. The bile ducts are within normal limits. There is hepatic color flow. The direction of portal flow is hepatopetal. There is no demonstrated mass lesion. Portal vein measurement: Gallbladder: Normal distended gallbladder. The gallbladder wall measures 3.0 mm. There is a negative sonographic Swanson''s sign. There is no pericholecystic fluid. There are no gallstones. Common Bile Duct (C.B.D.): The common bile duct measures 2.0 mm. Pancreas: Normal size of the head, body and tail of the pancreas. There is normal echogenicity of the pancreas. There is no demonstrated pancreatic mass or cyst. Spleen: Normal size of the spleen. The spleen measures 11.8 cm x 4.3 cm x 4.2 cm. There is a 1.1 cm x 1 cm by 0.7 cm cyst in the spleen. Right Kidney: Normal size of the right kidney. The right kidney measures 11.3 cm x 4.5 cm x 3.9 cm. Normal renal cortex. The right cortex measures 1.1 cm. There is no demonstrated renal mass or cyst. There is no right hydronephrosis. Left Kidney: Normal size of the left kidney. The left kidney measures 11.6 cm x 5.1 cm x 5.3 cm. Normal renal cortex. The left cortex measures 1.7 cm. There is no demonstrated renal mass or cyst. There is no left hydronephrosis. Aorta: Unremarkable. I.V.C.: The IVC is patent. There is no ascites. US/Abdomen Complete IMPRESSION: 1.1 cm x 1 cm x 0.7 cm splenic cyst Electronically Signed: Dieudonne Guevara MD at 9:16 EDT , Service support ,
== END ==
LOC: US 08:17 → OPUS 08:26
PROVIDERS: PCP Family Medicine; Referring Provider Family Medicine; Visit Provider Family Medicine
DX: N92.6 Irregular menstruation, unspecified (principal); R10.9 Unspecified abdominal pain
CPT/HCPCS: 76700

== ENCOUNTER 2021-04-07 14:44 | Emergency (ER) | payer OTHER, SELFPAY ==
[2021-04-07 14:45] VITALS: BP 106/74; PULSE 80; RESP 16; TEMP 36.6; O2SAT 99; BMI 18.4
--- NOTE | 2021-04-07 15:19 | CT_ITS ---
STUDY: CT ABDOMEN AND PELVIS WITH CONTRAST REASON FOR EXAM: Female, 26 years old. abd pain -- IV PO Contrast RADIATION DOSAGE (If Supplied By Facility): CTDIvol = ( 6.01 ) mGy, DLP = ( 281.07 ) mGycm TECHNIQUE: Transaxial images were obtained from the dome of the diaphragm to the symphysis pubis without oral contrast. Oral and amp; IV Gastrografin and amp; 75mL Isovue-370 was administered. Sagittal and coronal images were reconstructed. Individualized dose optimization techniques were used for this CT. COMPARISON: None. FINDINGS: The visualized lung bases are unremarkable. The visualized portions of the heart are within normal limits. Normal liver. Normal gallbladder and extrahepatic biliary system. There are 2 probable cysts up to 1.6 cm in the spleen. Normal pancreas. Normal bilateral adrenal glands. Normal right kidney. Normal left kidney. Normal visualized stomach. Normal small intestine. Normal colon. The appendix is visualized and appears normal. Normal abdominal aorta. Normal inferior vena cava. Normal retroperitoneum. Normal urinary bladder. 1.6 cm right adnexal cystic nodule. Mild pelvic fluid. Normal abdominal wall. Normal osseous structures. CT/Abdomen/Pelvis WITH Contrast IMPRESSION: Probable cysts in the spleen. Small right adnexal cystic nodule. Mild pelvic fluid. Electronically Signed: Gonzales Connors DO at 18:21 EDT Tel [phone], Service support ,
--- NOTE | 2021-04-07 15:19 | EDS_ITS ---
HPI History of Present Illness Chief Complaint: Abd Pain Informant: patient Onset/Context/Timing Onset: Month(s) Context: Gradual Onset Timing: Waxes and wanes Current Severity: Mild Maximum Severity: Moderate Narrative Narrative: Patient presents with greater than 1 month history of abdominal pain. She describes a band across the mid abdomen. She states sometimes it feels like a tight squeezing pain is sometimes sharp and stabbing. It does seem to wax and wane but she cannot figure out what makes it worse. She denies fever or chills. No vomiting. She reports soft stool but no diarrhea. Patient was seen by her PCP and had abdominal and pelvic ultrasounds performed. No definitive cause of her pain was found. PFSH PFSH Home Medications naproxen [Naprosyn] 500 mg PO BID PRN #20 tab 04/07/21 [Rx Last Taken Unknown] Allergy/AdvReac Type Severity Reaction Status Date / Time No Known Allergies Allergy Verified 04/07/21 14:47 Surgical History history of heel surgery Social History Smoking Status: Never smoker ROS ROS ED Constitutional Constitutional ED: Denies chills or fever(s) Eyes Eyes: Denies change in vision ENT ENT ED: Denies sore throat Cardiovascular Cardiovascular: Denies chest pain Respiratory/Chest Respiratory/Chest: Denies cough or dyspnea Gastrointestinal Gastrointestinal: Reports abdominal pain; Denies diarrhea, nausea or vomiting Genitourinary Genitourinary ED: Denies dysuria Musculoskeletal Musculoskeletal: Denies back pain Integumentary Denies rash Neurologic Neurologic: Denies headache(s) or weakness Allergic/Immunologic Allergic/Immunologic ED: Denies urticaria EXAM Physical Exam Const Vital Signs: 04/07/21 14:45 04/07/21 16:44 Temperature 97.8 F Temperature Source Temporal Pulse Rate 80 Respiratory Rate 16 16 Blood Pressure 106/74 Blood Pressure Mean 84 Pulse Ox 99 Oxygen Delivery Method Room Air Positive well nourished and well developed General Appearance ED: well developed HEENT Reports normocephalic and head/scalp atraumatic Eyes PERRL and EOMs intact bilaterally Neck supple Chest Wall inspection of chest normal and palpation of chest normal Resp normal respiratory effort and clear to auscultation bilaterally Cardio regular rate and regular rhythm GI Auscultation: hypoactive bowel sounds Palpation: soft and tender other (Mild mid abdominal tenderness palpation. No guarding or rebound.) Extremity normal to inspection Neuro oriented x3 and no sensory deficits noted Sensorium / Orientation: alert Motor Exam: strength 5/5 throughout Psych mental status grossly normal Skin no rashes or lesions noted MDM MDM MDM Narrative Medical decision making narrative: Labs, urinalysis, CT with p.o. and IV contrast obtained. Patient was given IV Toradol. Lab Data Attestation: I reviewed the patient's lab results. Labs: Laboratory Results - last 24 hr 04/07/21 04/07/21 04/07/21 15:43 15:51 15:51 WBC 4.0 L RBC 4.55 Hgb 13.3 Hct 41.6 MCV 91.4 MCH 29.2 MCHC 32.0 RDW Std Deviation 42.1 RDW Coeff of [place] 12.6 Plt Count 241 MPV 10.0 Immature Gran % (Auto) 0.300 Neut % (Auto) 62.8 Lymph % (Auto) 28.3 [place] % (Auto) 6.8 Eos % (Auto) 1.5 Baso % (Auto) 0.3 Absolute Neuts (auto) 2.5 Absolute Lymphs (auto) 1.12 Nucleated RBC % 0 Sodium 139 Potassium 4.0 Chloride 107 Carbon Dioxide 29.0 Anion Gap 3 L BUN 10 Creatinine 0.69 Estim Creat Clear Calc 102.57 Est GFR (MDRD) Af Amer 130 Est GFR (MDRD) Non-Af 108 BUN/Creatinine Ratio 14.5 Glucose 103 Calcium 8.7 Total Bilirubin 0.40 Direct Bilirubin 0.15 AST 14 L ALT 24 Alkaline Phosphatase 58 Total Protein 8.0 Albumin 4.1 Globulin 3.9 Serum , Qual Urine Color Yellow Urine Clarity Sl. Cloudy Urine pH 8.0 Ur Specific [place] 1.015 Urine Protein Negative Urine Glucose (UA) Normal Urine Ketones Negative Urine Occult Blood 25 H Urine Nitrite Negative Urine Bilirubin Negative Urine Urobilinogen Normal Ur Leukocyte Esterase 25 H Urine RBC 0 SEEN Urine WBC 0-5 SEEN Ur Squamous Epith Cells 0-5 SEEN Amorphous Sediment 1+ Urine Bacteria RARE Urine Mucus 0 SEEN 04/07/21 15:51 WBC RBC Hgb Hct MCV MCH MCHC RDW Std Deviation RDW Coeff of [place]ena Plt Count MPV Immature Gran % (Auto) Neut % (Auto) Lymph % (Auto) [place] % (Auto) Eos % (Auto) Baso % (Auto) Absolute Neuts (auto) Absolute Lymphs (auto) Nucleated RBC % Sodium Potassium Chloride Carbon Dioxide Anion Gap BUN Creatinine Estim Creat Clear Calc Est GFR (MDRD) Af Amer Est GFR (MDRD) Non-Af BUN/Creatinine Ratio Glucose Calcium Total Bilirubin Direct Bilirubin AST ALT Alkaline Phosphatase Total Protein Albumin Globulin Serum , Qual NEGATIVE Urine Color Urine Clarity Urine pH Ur Specific [place] Urine Protein Urine Glucose (UA) Urine Ketones Urine Occult Blood Urine Nitrite Urine Bilirubin Urine Urobilinogen Ur Leukocyte Esterase Urine RBC Urine WBC Ur Squamous Epith Cells Amorphous Sediment Urine Bacteria Urine Mucus Radiography Diagnostic Testing: Radiology Impression Abdomen/Pelvis CT 04/07/21 15:19 IMPRESSION: Probable cysts in the spleen. Small right adnexal cystic nodule. Mild pelvic fluid. Electronically Signed: Gonzales Connors DO at 18:21 EDT Tel [phone], Service support , Treatment and Re-Evaluation Comments:: Blood work reviewed and unremarkable. No overt signs of infection on urinalysis. CT scan reveals two small splenic cyst. Right ovary cystic nodule noted. On ultrasound 2 days ago this correlated with a corpus albicans lesion. Patient will be written for anti-inflammatories. She is advised to help her primary care physician as well as her REPRODUCTIVE ENDOCRINOLOGIST. Discharge Plan Triage Chief Complaint: Abd Pain ED Provider: Gertrude Costa Dx/Rx/DC Orders Clinical Impression: Abdominal pain Instructions: ED Abdominal Pain Unkn Cause Fem Prescriptions: New naproxen [Naprosyn] 500 mg tablet 500 mg PO BID PRN (Reason: pain) Qty: 20 RF: 0 Discontinued Prenatabs FA 1 TABLET tablet 1 tab PO DAILY RF: 0 ibuprofen 600 MG tablet 600 mg PO TID PRN (Reason: Pain) Qty: 30 RF: 0 Primary Care Provider: Aury Tavarez Referrals: Aury Tavarez MD [Primary Care Provider] - 5-7 Days Disposition Disposition: Home, Self Care
[2021-04-07] MEDS: Ketorolac 30 MG/ML Syringe IV (15:50)
[2021-04-07] MEDS: 0.9% Normal Saline 1,000 ML 150 ML IV (15:50)
[2021-04-07 16:02] LABS: Mucous, Urine 0 SEEN /hpf (<or=2+); Red Blood Cells-Urine 0 SEEN /hpf (0-5)
[2021-04-07 16:02] LABS: Absolute Lymphocyte Count 1.12 X10^3/uL (0.83-4.51); Absolute Neutrophil Count 2.5 X10^3/uL (2.0-7.7); Basophil# 0.01 X10^3/uL; Basophil% 0.3 % (0-1); Eosinophil# 0.06 X10^3/uL; Eosinophils% 1.5 % (0-5); Hematocrit 41.6 % (37-47); Hemoglobin 13.3 g/dL (12.0-15.0); Lymphocyte # 1.12 X10^3/ul (0.83-4.51); Lymphocyte % 28.3 % (19-41); Mean Corpuscular Hgb 29.2 pg (27.0-32.0); Mean Corpuscular Volume 91.4 fL (81-99); Monocyte# 0.27 X10^3/uL; Monocyte% 6.8 % (0-10); NRBC Flagged by Analyzer 0 % (0-5); Neutrophil # 2.49 X10^3/uL (2.7-7.7); Neutrophil % 62.8 % (47-70); Platelet Count 241 K/mm3 (150-450); RBC Distribution Width CV 12.6 % (11.6-14.6); RBC Distribution Width SD 42.1 fl (35.1-43.9); Red Blood Count 4.55 M/mm3 (4.2-5.4)
[2021-04-07 16:04] LABS: Color, Urine Yellow (Yellow); Glucose, Dipstick Normal (Normal); Ketone-Dipstick Negative (Negative); Leukocyte Esterase-Dipstick 25 /ul (Negative); Nitrite-Dipstick Negative (Negative); Occult Blood-Urine 25 /ul (Negative); Protein-Dipstick Negative (Negative); Specific Gravity, Urine 1.015 (1.002-1.030); Urine Bilirubin Dipstick Negative (Negative); Urine Clarity Sl. Cloudy (Clear); Urine Urobilinogen Normal (Normal)
[2021-04-07 16:13] LABS: Amorphous Sediment 1+; Bacteria RARE /hpf (None Seen); Squamous Epithelial Cells - UA 0-5 SEEN /hpf (5-10); White Blood Cells 0-5 SEEN /hpf (0-5)
[2021-04-07 16:14] LABS: Internal QC Validated? YES +Cl - CLEAR BKGD; Pregnancy, Serum, hCG Quali. NEGATIVE Negative
[2021-04-07 16:18] LABS: AST(SGOT) 14 U/L (15-37); Alanine Aminotransfer ALT/SGPT 24 U/L (13-56); Albumin, Serum 4.1 g/dL (3.2-5.0); Alkaline Phosphatase 58 U/L (45-117); Anion Gap 3 (5-15); BUN 10 mg/dL (7-18); BUN/Creat Ratio 14.5 RATIO (10-20); Bilirubin, Direct 0.15 mg/dL (0.00-0.30); Calcium,Total 8.7 mg/dL (8.5-10.1); Chloride 107 mmol/L (98-107); Creatinine, Serum 0.69 mg/dL (0.55-1.02); EST Glomerular Filtration Rate 108 mL/min (>60); Est Glom Filt Rate - Afr Amer 130 mL/min (>60); Estimated Creatinine Clearance 102.57 ml/min; Globulin 3.9 g/dL (2.2-4.2); Glucose 103 mg/dL (74-106); Sodium Level 139 mmol/L (136-145)
[2021-04-07 16:44] VITALS: RESP 16
--- NOTE | 2021-04-07 17:35 | RAD.NOTE ---
Addendum entered by Rupal Tejada 04/07/21 17:43: Carlita Saldaña, ED charge nurse, notified of IV complaint. Original Note: Upon start of contrast injection patient complained of severe pain at site of IV. Injection was paused and IV was investigated. No infiltration was noted, patients arm was soft, good blood return on pullback, flushed easily without complaint. New IV dressing applied and contrast again initiated with lower flow rate. Patient still complained of discomfort, but stated it was tolerable. Imaging study was completed and IV was again checked at conclusion of scan. Again, no infiltration was noted.
== END 2021-04-07 18:44 | disposition home or self-care (01) ==
PROVIDERS: Emergency Provider Emergency Medicine; PCP Family Medicine
DX: R10.9 Unspecified abdominal pain (principal)
CPT/HCPCS: 74177; 80048; 80076; 81001; 84703; 85025; 96361; 96374; 99282; J7030; Q9967; A4216

== ENCOUNTER 2021-10-05 11:32 | Outpatient (CLI) | payer SELFPAY ==
[2021-10-05 12:43] LABS: Absolute Lymphocyte Count 0.85 X10^3/uL (0.83-4.51); Absolute Neutrophil Count 2.9 X10^3/uL (2.0-7.7); Basophil# 0.02 X10^3/uL; Basophil% 0.5 % (0-1); Eosinophil# 0.02 X10^3/uL; Eosinophils% 0.5 % (0-5); Hematocrit 39.1 % (37-47); Hemoglobin 13.5 g/dL (12.0-15.0); Lymphocyte # 0.85 X10^3/ul (0.83-4.51); Lymphocyte % 20.1 % (19-41); Mean Corp Hgb Conc 34.5 g/dL (32-36); Mean Corpuscular Hgb 31.4 pg (27.0-32.0); Mean Corpuscular Volume 90.9 fL (81-99); Mean Platelet Vol. 9.9 fl (6.2-12.0); Monocyte% 9.5 % (0-10); NRBC Flagged by Analyzer 0 % (0-5); Neutrophil # 2.92 X10^3/uL (2.7-7.7); Neutrophil % 69.2 % (47-70); Platelet Count 225 K/mm3 (150-450); RBC Distribution Width CV 12.2 % (11.6-14.6); White Blood Count 4.2 K/mm3 (4.4-11.0)
[2021-10-05 12:56] LABS: Color, Urine Yellow (Yellow); Glucose, Dipstick Normal (Normal); Ketone-Dipstick 5 mg/dl (Negative); Leukocyte Esterase-Dipstick 500 /ul (Negative); Nitrite-Dipstick Negative (Negative); Occult Blood-Urine Negative /ul (Negative); Protein-Dipstick 30 mg/dl (Negative); Specific Gravity, Urine 1.025 (1.002-1.030); Urine Clarity Sl. Cloudy (Clear); Urine Urobilinogen Normal (Normal)
[2021-10-05 12:57] LABS: Urine Bilirubin Dipstick 1 mg/dL (Negative)
[2021-10-05 13:03] LABS: Amphetamine Urine VISTA NEGATIVE (<1000 ng/mL); Barbiturate Urine VISTA NEGATIVE (< 200 ng/mL); Benzodiazepine Urine VISTA NEGATIVE (< 200 ng/mL); Cocaine Urine VISTA NEGATIVE (< 300 ng/mL); Ecstacy Urine VISTA NEGATIVE (< 500 ng/mL); Methadone Urine VISTA NEGATIVE (< 300 ng/mL); PCP Urine VISTA NEGATIVE (< 25 ng/mL); THC Urine VISTA NEGATIVE (< 50 ng/mL); Vista UDS pH Range 6
[2021-10-05 13:14] LABS: ALB/GLOB Ratio 0.9 RATIO (0.9-2.4); AST(SGOT) 18 U/L (15-37); Alanine Aminotransfer ALT/SGPT 19 U/L (13-56); Albumin, Serum 3.7 g/dL (3.2-5.0); Alkaline Phosphatase 51 U/L (45-117); Anion Gap 7 (5-15); BUN 9 mg/dL (7-18); BUN/Creat Ratio 12.9 RATIO (10-20); Calcium,Total 8.9 mg/dL (8.5-10.1); Chloride 104 mmol/L (98-107); EST Glomerular Filtration Rate 106 mL/min (>60); Est Glom Filt Rate - Afr Amer 129 mL/min (>60); Globulin 3.9 g/dL (2.2-4.2); Glucose 77 mg/dL (74-106); Potassium 3.5 mmol/L (3.5-5.1); Protein, Total 7.6 g/dL (6.4-8.2); Sodium Level 137 mmol/L (136-145); Thyroid Stim Hormone (TSH) 0.09 uIU/mL (0.358-3.74)
[2021-10-05 13:39] LABS: HIV - WCH Non-Reactive (Nonreactive); Hepatitis B Surface Antigen Non-Reactive (Nonreactive); Hepatitis C Antibody Non-Reactive (Nonreactive); Rubella IgG Reactive (Nonreactive); Syphilis Antibodies Non-reactive
[2021-10-05 15:36] LABS: T4 Free Direct 1.28 ng/dL (0.76-1.46)
[2021-10-07 00:07] LABS: Chlamydia By Nucleic Acid AMP Negative (Negative)
[2021-10-07 08:12] LABS: Gonococcus By Nucleic Acid AMP Negative (Negative)
[2021-10-12 10:20] LABS: HPV APTIMA, High Risk Negative (Negative); HPV Reflexed? YES, CHARGE PATIENT
== END 2021-10-05 23:59 | disposition home or self-care (01) ==
LOC: WOBLAB 11:33
PROVIDERS: PCP Family Medicine; Visit Provider Obstetrics & Gynecology
DX: Z34.81 Encounter for supervision of other normal pregnancy, first trimester (principal); E20.9 Hypoparathyroidism, unspecified; Z12.4 Encounter for screening for malignant neoplasm of cervix
CPT/HCPCS: 36415; 80053; 80307; 81002; 84439; 84443; 85025; 86703; 86762; 86780; 86803; 87086; 87088; 87340; 87491; 87591; 87624; 88175; G0145

== ENCOUNTER → 2022-02-07 | Outpatient (CLI) | payer SELFPAY ==
[2022-02-07 14:27] LABS: Hematocrit 30.9 % (37-47); Hemoglobin 10.6 g/dL (12.0-15.0); Mean Corp Hgb Conc 34.3 g/dL (32-36); Mean Corpuscular Hgb 32.1 pg (27.0-32.0); Mean Corpuscular Volume 93.6 fL (81-99); Mean Platelet Vol. 9.7 fl (6.2-12.0); Platelet Count 211 K/mm3 (150-450); RBC Distribution Width CV 13.5 % (11.6-14.6); RBC Distribution Width SD 46.4 fl (35.1-43.9); White Blood Count 7.2 K/mm3 (4.4-11.0)
[2022-02-07 15:13] LABS: Glucose Challenge Gest 1H 50g 86 mg/dL (70-140)
== END | disposition home or self-care (01) ==
PROVIDERS: PCP Family Medicine; Visit Provider Obstetrics & Gynecology
DX: Z34.83 Encounter for supervision of other normal pregnancy, third trimester (principal)
CPT/HCPCS: 36415; 82950; 85027

== ENCOUNTER → 2022-03-07 | Outpatient (CLI) | payer SELFPAY ==
[2022-03-07 15:26] LABS: Mucous, Urine 0 SEEN /hpf (<or=2+); Red Blood Cells-Urine 0 SEEN /hpf (0-5)
[2022-03-07 16:20] LABS: Color, Urine Straw (Yellow); Glucose, Dipstick Normal (Normal); Ketone-Dipstick Negative (Negative); Leukocyte Esterase-Dipstick 500 /ul (Negative); Nitrite-Dipstick Negative (Negative); Occult Blood-Urine Negative /ul (Negative); Protein-Dipstick Negative (Negative); Urine Bilirubin Dipstick Negative (Negative); Urine Clarity Clear (Clear); Urine Urobilinogen Normal (Normal)
[2022-03-07 16:34] LABS: Bacteria 2+ /hpf (None Seen); Squamous Epithelial Cells - UA 0-5 SEEN /hpf (5-10); White Blood Cells 5-10 SEEN /hpf (0-5)
== END | disposition home or self-care (01) ==
LOC: LABSPEC 15:24
PROVIDERS: PCP Family Medicine; Visit Provider Student in an Organized Health Care Education/Training Program
DX: Z34.83 Encounter for supervision of other normal pregnancy, third trimester (principal)
CPT/HCPCS: 81001; 87086; 87088

== ENCOUNTER → 2022-03-31 | Outpatient (CLI) | payer SELFPAY | END | disposition home or self-care (01) | PROVIDERS: PCP Family Medicine; Visit Provider Student in an Organized Health Care Education/Training Program | DX: Z36.85 Encounter for antenatal screening for Streptococcus B (principal) | CPT/HCPCS: 87081 ==

== ENCOUNTER 2022-04-17 18:05 | Inpatient (IN) | payer SELFPAY ==
[2022-04-17] VITALS (9 sets, daily range): BP systolic 101–132; BP diastolic 59–79; PULSE 63–94; TEMP 36.5–36.9; O2SAT 98–99; BMI 24.5
--- NOTE | 2022-04-17 18:08 | HP.PCM.OB_ITS ---
History and Physical Date of Admission: 04/17/22 27-year-old at 38/3 weeks, JASON 04/28/2022 by early ultrasound, admitted for induction of labor for nonreassuring heart tones. Patient presented with contractions starting today. Denies leaking of fluid, vaginal bleeding. Reports movement. Patient has made cervical change from 3 to 4 cm during triage observation. Has history of fast labor. Denies headache, vision changes, chest pain or shortness of breath, nausea or vomiting, diarrhea or constipation, fevers or chills. complicated by: Nothing COMPLIANCE NURSE history: G1: 39-week G2: Full-term G3: Current Medical history: Denies Surgical history: History of right heel surgery after fracture in 2017 Medications: vitamin Allergies: No known drug allergies Social history: Denies tobacco, alcohol, drug use Family history: Noncontributory Review of system: Negative otherwise stated above Physical exam: Blood pressure 125/78, temp 98.4 ?F, pulse 94, pulse ox 98% on room air General: No acute distress HEENT: Normocephalic/atraumatic, PERRLA Cardiorespiratory: No increased effort Abdomen: Soft, nontender, gravid Extremity: No edema Musculoskeletal: Strength out of 5 throughout all extremities Neurologic: Cranial nerves II through XII grossly intact, no focal deficits Cervical exam: 4 cm per RN heart rate: 145/mod magdalena/+accel/+ late decel x2, intermittent variable decel [place]: q3-4 Labs: GBS neg 8/12 A pos Hepatitis B/C neg/neg HIV negative syphilis negative Gonorrhea/chlamydia negative Rubella immune Assessment & Plan Assessment/Plan (1) Encounter for induction of labor: PLAN: 27-year-old at 38/3 weeks, admitted for induction of labor for nonreassuring heart tones. uncomplicated. ?Patient at term with late and variable decelerations during monitoring. Patient has been made cervical change from 3 to 4 cm. Likely in early labor as well. ?Not planning epidural ?Induce labor with amniotomy (2) 38 weeks gestation of : (3) Non-reassuring heart rate or rhythm affecting management of fetus:
[2022-04-17] MEDS: Lactated Ringers 1,000 ML 50 ML IV (18:12)
[2022-04-17 18:31] LABS: Absolute Lymphocyte Count 1.11 X10^3/uL (0.83-4.51); Absolute Neutrophil Count 5.1 X10^3/uL (2.0-7.7); Basophil# 0.02 X10^3/uL; Basophil% 0.3 % (0-1); Eosinophil# 0.03 X10^3/uL; Eosinophils% 0.4 % (0-5); Hemoglobin 12.1 g/dL (12.0-15.0); Lymphocyte # 1.11 X10^3/ul (0.83-4.51); Lymphocyte % 16.5 % (19-41); Mean Corp Hgb Conc 33.6 g/dL (32-36); Mean Corpuscular Hgb 31.5 pg (27.0-32.0); Mean Corpuscular Volume 93.8 fL (81-99); Mean Platelet Vol. 10.5 fl (6.2-12.0); Monocyte# 0.44 X10^3/uL; Monocyte% 6.6 % (0-10); NRBC Flagged by Analyzer 0 % (0-5); Neutrophil # 5.05 X10^3/uL (2.7-7.7); Neutrophil % 75.3 % (47-70); Platelet Count 251 K/mm3 (150-450); RBC Distribution Width CV 13.2 % (11.6-14.6); RBC Distribution Width SD 44.8 fl (35.1-43.9); Red Blood Count 3.84 M/mm3 (4.2-5.4); White Blood Count 6.7 K/mm3 (4.4-11.0)
[2022-04-17] MEDS: Oxytocin 30 units/NS 500 ml 30 UNITS/500 ML IV.SOLN IV (21:58)
[2022-04-18] VITALS (17 sets, daily range): BP systolic 110–142; BP diastolic 56–84; PULSE 58–83; RESP 16–18; TEMP 36.1–36.9; O2SAT 96–100
[2022-04-18] MEDS: Oxytocin 30 units/NS 500 ml 30 UNITS/500 ML IV.SOLN 334 UNITS IV (00:50)
--- NOTE | 2022-04-18 00:57 | EX.PCM.OBRPT ---
Maternal Data Information Final JASON: 04/28/22 Final JASON Source: US <20 weeks Vaginal Delivery Operative Information Date of Procedure: 04/18/22 Pre-Operative Diagnosis: Lara intrauterine Post-Operative Diagnosis: Lara intrauterine Surgery / Procedure Performed: Spontaneous Vaginal Delivery Type of Anesthesia: None Estimated Blood Loss: 300cc Findings Description of Procedure: Precipitous spontaneous vaginal delivery. No nuchal cord per RN. Baby to mom. Cord clamped and cut. Spontaneous delivery of placenta. Minimal first-degree laceration, hemostatic without intervention. A Gender: Female (1 minute): 9 (5 minute): 10
[2022-04-18] MEDS: Methylergonovine 0.2 MG/ML Ampul IM (01:25)
[2022-04-18] MEDS: 0.9% Saline Lock 10 ML Syringe IV (03:30)
--- NOTE | 2022-04-18 07:11 | NURSING ---
report given to Belia Zepeda RN who is assuming care of pt at this time
[2022-04-19 01:10] VITALS: BP 120/73; PULSE 72; RESP 16; TEMP 36.6
[2022-04-19 04:36] VITALS: BP 117/78; PULSE 76; RESP 16; TEMP 36.6; O2SAT 97
[2022-04-19 08:00] VITALS: BP 124/80; PULSE 71; RESP 16; O2SAT 100
--- NOTE | 2022-04-19 08:16 | PCM.DC.BLA ---
Discharge Summary Date of Admission: 04/17/22 Date of Discharge: 04/19/22 Summary: arrived on 04/17 with nonreassuring heart tones and was induced for this reason. Subsequently delivered on 04/17 vaginally. Routine recovery. Discharge home on 04/19/2022 Meaningful Use Info Meaningful Use Diagnoses (Choose all that apply): None applicable Discharge Plan Admission Admit Date/Time: 04/17/22 18:05 Primary Reason for Your Visit: nonreassuring heart tones Attending Provider: Teri Akers Primary Care Provider: Ashwin Sims Instructions Additional Instructions / Restrictions: Regular diet. Ambulate as tolerated. Weightbearing as tolerated. No intercourse for 4 to 6 weeks. Okay to shower. Call if fevers, chills, chest pain, shortness of breath. Follow-up 4 to 6 weeks Discharge Orders/Prescriptions Prescriptions: No Action ferrous sulfate [iron] 325 mg (65 mg iron) Tablet 325 mg PO DAILY Prenatabs FA 29-1 mg Tablet 1 tab PO DAILY Referrals / Follow Up: Ashwin Sims MD [Primary Care Provider] - Disposition Disposition (needs filled in before D/C Order can be placed): Home, Self Care
--- NOTE | 2022-04-19 08:18 | PCM.PN.OB ---
Subjective Subjective No overnight complaints Objective Data Objective Data Vital Signs: Vital Signs Temp Pulse Resp BP Pulse Ox O2 Del Method 97.8 F 71 16 124/80 H 100 Room Air 04/19/22 04:36 04/19/22 08:00 04/19/22 08:00 04/19/22 08:00 04/19/22 08:00 04/19/22 08:00 Oxygen Delivery Method Room Air Weight: 156 lb 15.506 oz Body Mass Index (BMI) 24.5 Intake & Output: Intake and Output for Last 24 Hours 04/17/22 04/18/22 04/19/22 23:59 23:59 23:59 Intake Total 469.50 / 469.50 715.96 / 715.96 Output Total 1000 / 1000 Balance 469.50 / 469.50 -284.04 / -284.04 Lab / Micro Data Result Diagrams: 04/17/22 18:12 Micro: Microbiology 04/17/22 18:12 Nasal Secretion SARS-CoV-2 Antigen (Rapid) - Final Physical Exam Const alert, oriented x3, no apparent distress, average body habitus, healthy appearing and well nourished HEENT normocephalic and moist oral mucous membranes Eyes PERRL Neck full ROM Resp normal respiratory effort, no retractions and no use of accessory muscles Extremity normal to inspection and full ROM Skin no rashes or lesions noted Neuro moves all extremities and no focal motor deficits Psych mental status grossly normal, affect normal, speech normal and activity/motor behavior normal Assessment & Plan (1) (spontaneous vaginal delivery): PLAN: day 2. Breast-feeding. Pain well controlled. Okay to discharge home if okay with inside sales supervisor
--- NOTE | 2022-04-26 15:25 | NURSING ---
Follow up call done: Loved my delivery nurses. Patient reports that she and baby are both doing very well, healthy and denies qustions or concerns.Reports being very satisfied with her care.
== END 2022-04-19 10:24 | disposition home or self-care (01) | DRG 807 ==
LOC: WPOUT 18:08 → WP 18:08
PROVIDERS: Admitting Provider Student in an Organized Health Care Education/Training Program; PCP Family Medicine; Visit Provider Student in an Organized Health Care Education/Training Program
DX: O76 Abnormality in fetal heart rate and rhythm complicating labor and delivery (principal); Z37.0 Single live birth; O62.3 Precipitate labor; O70.0 First degree perineal laceration during delivery; Z3A.38 38 weeks gestation of pregnancy
CPT/HCPCS: 59025; 59050; 85025; 86850; 86900; 86901; 87426; 99218; J7120; A4216; G0378

== ENCOUNTER → 2022-11-27 | Outpatient (CLI) | payer SELFPAY ==
[2022-12-01 20:11] LABS: HPV APTIMA, High Risk Negative (Negative)
== END | disposition home or self-care (01) ==
LOC: LABSPEC 10:25
PROVIDERS: PCP Family Medicine; Visit Provider Student in an Organized Health Care Education/Training Program
DX: Z12.4 Encounter for screening for malignant neoplasm of cervix (principal)
CPT/HCPCS: 87624; 88175; G0145

== ENCOUNTER 2024-09-19 21:13 | Inpatient (IN) | payer SELFPAY ==
[2024-09-19] VITALS (9 sets, daily range): BP systolic 113–128; BP diastolic 65–74; PULSE 68–84; RESP 16–24; TEMP 36.6–36.8; O2SAT 97–100; BMI 24.8
[2024-09-19 21:50] LABS: Absolute Lymphocyte Count 1.09 X10^3/uL (0.83-4.51); Absolute Neutrophil Count 6.3 X10^3/uL (2.0-7.7); Basophil# 0.02 X10^3/uL; Basophil% 0.3 % (0-1); Eosinophil# 0.03 X10^3/uL; Eosinophils% 0.4 % (0-5); Hematocrit 32.2 % (37-47); Hemoglobin 10.7 g/dL (12.0-15.0); Lymphocyte # 1.09 X10^3/ul (0.83-4.51); Lymphocyte % 13.7 % (19-41); Mean Corp Hgb Conc 33.2 g/dL (32-36); Mean Corpuscular Hgb 30.1 pg (27.0-32.0); Mean Corpuscular Volume 90.7 fL (81-99); Mean Platelet Vol. 9.7 fl (6.2-12.0); Monocyte# 0.47 X10^3/uL; Monocyte% 5.9 % (0-10); NRBC Flagged by Analyzer 0 % (0-5); Neutrophil # 6.31 X10^3/uL (2.7-7.7); Neutrophil % 79.1 % (47-70); Platelet Count 248 K/mm3 (150-450); RBC Distribution Width CV 13.7 % (11.6-14.6); RBC Distribution Width SD 45.4 fl (35.1-43.9); Red Blood Count 3.55 M/mm3 (4.2-5.4)
[2024-09-19] MEDS: Lactated Ringers 1,000 ML 999 ML IV (22:53)
[2024-09-19] MEDS: Oxytocin 10 UNITS/ML Vial IM (23:01)
[2024-09-19] MEDS: Oxytocin 15 Units/NS 250ml 15 UNITS/250 ML IV.SOLN 83 UNITS IV (23:03)
--- NOTE | 2024-09-19 23:22 | PCM.HP.OB ---
HPI - General General Date of Admission: 09/19/24 Date of Service: 09/19/24 Chief Complaint: contractions HPI Narrative AFIA JAFFE, is a 29 4 para 3 who presents at 39-4/7 weeks complaining contractions. She denies any vaginal bleeding or leaking of fluid. She has had good movement. is complicated to date by history of late care. She has a history of previous precipitous deliveries. Past obstetrical history significant for 3 previous vaginal deliveries. Maternal Data Information Final JASON: 09/22/24 Gestational age: 39 4/7 [facility] Medical History (Updated 09/19/24 @ 23:[address] Ese Hand MD) Superficial varicosities Home Medications ?Medication ?Instructions ?Recorded ?Last Taken ?Type ferrous sulfate 325 mg (65 mg 325 mg PO DAILY anemia in 04/17/22 Unknown History iron) tablet (iron) Held on 09/19/24. Instructions: Order Completed vits,calcium no.78-iron 1 tab PO DAILY 04/17/22 09/19/24 08:00 History fumarate-folic acid 29 mg-1 mg tablet (Prenatabs FA) cetirizine 10 mg capsule (Zyrtec) 10 mg PO DAILY PRN allergies 09/19/24 Unknown History Allergy/AdvReac Type Severity Reaction Status Date / Time No Known Allergies Allergy Verified 09/19/24 20:52 Surgical History (Updated 09/19/24 @ 21:36 by Zoie Orr) [place] teeth removed history of heel surgery Social History Smoking Status: Never smoker History Elective abortions Hx Para 2 Spontaneous abortions Hx # Term Pregnancies Ectopic pregnancies Hx # Pregnancies Multiple births # of living children ROS Constitutional Constitutional: Denies fatigue, fever(s) or malaise Eyes Eyes: Denies change in vision ENT HEENT: Denies dizziness or headache(s) Cardiovascular Cardiovascular: Denies chest pain, dyspnea or lightheadedness Respiratory/Chest Respiratory/Chest: Denies cough or dyspnea Gastrointestinal Gastrointestinal: Denies change in bowel habits Genitourinary Genitourinary: Denies burning urination or genital lesions Integumentary Integumentary: Denies rash Neurologic Neurologic: Denies confusion, dizziness, headache(s), numbness or weakness Vital Signs Vital Signs Vital Signs: 09/19/24 20:56 09/19/24 20:56 09/19/24 20:56 Temperature Temperature Source Pulse Rate 84 Respiratory Rate Blood Pressure 128/71 H BP Systolic 128 BP Diastolic 71 Pulse Ox 100 09/19/24 21:02 09/19/24 21:02 09/19/24 21:05 Temperature 97.9 F Temperature Source Oral Pulse Rate Respiratory Rate 24 H Blood Pressure BP Systolic BP Diastolic Pulse Ox 09/19/24 23:06 09/19/24 23:06 09/19/24 23:07 Temperature Temperature Source Pulse Rate 81 Respiratory Rate Blood Pressure 119/68 BP Systolic 119 BP Diastolic 68 Pulse Ox 97 09/19/24 23:07 09/19/24 23:07 09/19/24 23:07 Temperature Temperature Source Oral Pulse Rate 82 Respiratory Rate 20 H Blood Pressure BP Systolic BP Diastolic Pulse Ox 09/19/24 23:07 Temperature 98.2 F Temperature Source Pulse Rate Respiratory Rate Blood Pressure BP Systolic BP Diastolic Pulse Ox Weight Weight: 71.94 kg Body Mass Index (BMI) 24.8 Physical Exam Const alert and no apparent distress General Appearance: cooperative HEENT normocephalic Resp normal respiratory effort Cardio regular rate GI soft to palpation GI Narrative: gravid, nontender, appropriate for gestational age Extremity no calf tenderness General Extremity: edema Skin no wounds Rashes: No rashes noted Psych activity/motor behavior normal Labs Labs Labs: Blood Type A POSITIVE Antibody Screen NEGATIVE Hct 32.2 % (37-47) L Hgb 10.7 g/dL (12.0-15.0) L Syphilis Total Ab Non-reactive Rubella IgG Antibody Reactive (Nonreactive) Hep Bs Antigen Non-Reactive (Nonreactive) Hepatitis C Antibody Non-Reactive (Nonreactive) Hepatitis C Ab (EIA) 0.2 s/co ratio (0.0-0.9) Chlamydia DNA ([place]ICA) Negative (Negative) N.gonorrhoeae DNA (ERICA) Negative (Negative) HIV 1&2 Antibody Non-Reactive (Nonreactive) Glucose 1 Hr 50 gm 86 mg/dL (70-140) Group B Strep DNA Negative (Negative) Rhogam given: No Assessment & Plan (1) 39 weeks gestation of : (2) Spontaneous onset of labor: PLAN: EFW < 4500 gm. Pelvis clinically adequate to expect vaginal delivery
--- NOTE | 2024-09-19 23:30 | OB.VAGDELI_ITS ---
Assessment & Plan (1) Spontaneous onset of labor: (2) (spontaneous vaginal delivery): (3) 39 weeks gestation of : Maternal Data Information Final JASON: 09/19/24 Gestational age: 39 4/7 Vaginal Delivery Maternal Presentation Maternal Presentation: Active Labor Vaginal Delivery Information Procedure Performed: Spontaneous Vaginal Delivery Surgeon/Practitioner: Ese Hand Date of Procedure: 09/19/24 Pre-Procedure Diagnosis: labor Post-Procedure Diagnosis: same Type of anesthesia: None Special Medications: none Estimated Blood Loss: 300 Time of Delivery: 22:58 Findings Description of procedure: A vigorous female was delivered MO over an intact perineum. A loose nuchal cord ?1 was easily reduced. The remainder the infant was delivered with maternal pushing and gentle traction only in less than 15 seconds. The Pitocin infusion was initiated for active management of the third stage. The cord was clamped and cut after cord pulsations ceased. The infant was attended to by the waiting nursing staff. The placenta was delivered spontaneously and intact. The cervix and vagina were intact. Sponge and needle counts were correct. A vaginal sweep was completed by me. Procedure findings: Vigorous female infant Presentation: MO Amniotic Membrane Rupture Type: Artificial Amniotic Fluid Description: Clear Placental Delivery Description: Spontaneous Placenta Disposition: [facility] Specimen collected: No Cord Vessel Description: 3 Vessels Cord Entanglement: Around neck x 1, loose Nuchal Cord Compression: Without compression Infant A Gender: Female ([place]) (1 minute): 9 (5 minute): 9 Delayed Cord Clamping: Yes Continuous Pickling Line Pickler insurance salesperson: No Post Vaginal Deli Medications given after delivery: IV Pitocin and IM Pitocin Episiotomy Description: None Laceration: None Complication Complications: No
[2024-09-20] VITALS (15 sets, daily range): BP systolic 110–130; BP diastolic 61–80; PULSE 68–100; RESP 16–20; TEMP 36.4–36.8; O2SAT 97–100
[2024-09-20] MEDS: 0.9% Saline Lock 10 ML Syringe IV (02:04)
--- NOTE | 2024-09-20 06:35 | PN.OBGYN_ITS ---
Subjective Subjective Pain well-controlled. Average lochia. Objective Data Objective Data Vital Signs: Vital Signs Temp Pulse Resp BP Pulse Ox O2 Del Method 97.8 F 81 16 110/75 97 Room Air 09/20/24 05:42 09/20/24 05:42 09/20/24 05:42 09/20/24 05:42 09/20/24 05:42 09/20/24 05:42 Oxygen Delivery Method Room Air Weight: 71.94 kg Body Mass Index (BMI) 24.8 Intake & Output: Intake and Output for Last 24 Hours 09/18/24 09/19/24 09/20/24 23:59 23:59 23:59 Intake Total 149.85 / 149.85 250 / 250 Output Total 300 / 300 200 / 200 Balance -150.15 / -150.15 50 / 50 Lab / Micro Data 09/19/24 21:25 Labs: Laboratory Results - last 24 hr 09/19/24 21:25: WBC 8.0, RBC 3.55 L, Hgb 10.7 L, Hct 32.2 L, MCV 90.7, MCH 30.1, MCHC 33.2, RDW Std Deviation 45.4 H, RDW Coeff of Lena 13.7, Plt Count 248, MPV 9.7, Immature Gran % (Auto) 0.600, Neut % (Auto) 79.1 H, Lymph % (Auto) 13.7 L, [place] % (Auto) 5.9, Eos % (Auto) 0.4, Baso % (Auto) 0.3, Absolute Neuts (auto) 6.3, Absolute Lymphs (auto) 1.09, Nucleated RBC % 0, Blood Type A POSITIVE, Antibody Screen NEGATIVE Physical Exam Const alert and no apparent distress Narrative: Fundus firm, below umbilicus. Assessment & Plan (1) (spontaneous vaginal delivery): PLAN: day #1. and patient are doing well. is breast-feeding. Anticipate discharge home to 2 AM (2) Spontaneous onset of labor:
[2024-09-20 09:46] LABS: Syphilis Antibodies Non-reactive
[2024-09-21 02:00] VITALS: BP 122/73; PULSE 73; RESP 16; TEMP 36.6; O2SAT 98
[2024-09-21 09:58] VITALS: BP 98/79; PULSE 69; RESP 16; TEMP 36.4; O2SAT 100
--- NOTE | 2024-09-21 10:09 | PCM.PN.OB ---
Subjective Subjective Patient is doing well this morning and offers no complaints. Desires discharge home. Denies chest pain, shortness of breath, leg pain, lightheadedness, dizziness. Lochia is normal. Pain is well-controlled. She is ambulating voiding without difficulty. Objective Data Objective Data Vital Signs: Vital Signs Temp Pulse Resp BP Pulse Ox O2 Del Method 97.5 F L 69 16 98/79 100 Room Air 09/21/24 09:58 09/21/24 09:58 09/21/24 09:58 09/21/24 09:58 09/21/24 09:58 09/21/24 09:58 Oxygen Delivery Method Room Air Weight: 158 lb 9.6 oz Body Mass Index (BMI) 24.8 Intake & Output: Intake and Output for Last 24 Hours 09/19/24 09/20/24 09/21/24 23:59 23:59 23:59 Intake Total 149.85 / 149.85 250 / 250 Output Total 300 / 300 200 / 200 Balance -150.15 / -150.15 50 / 50 Lab / Micro Data 09/19/24 21:25 Physical Exam Narrative The patient is up dressed, and ready to get with several other children in the room and infant in the car seat. Assessment & Plan (1) (spontaneous vaginal delivery): PLAN: Doing well . Discharge instructions reviewed with the patient. To follow-up in the office.
--- NOTE | 2024-09-21 10:11 | DCINST_ITS ---
Discharge Instructions Diet Discharge Diet: No restrictions DC O2, CPAP, BIPAP needs Home O2 Discharge instructions: No Dressing / Incision Discharge Activity: May Drive and May Shower May resume sexual activity in: 6 weeks (nothing in the vagina and no soaking in water) Weight Bearing Status: Weight bearing as tolerated Lifting Restrictions: nothing heavier than baby Dressing / Incision Call your doctor if you observe: Fever of 101 or Higher, Coldness, Increased Pain, Numbness or Tingling, Inability to urinate, Inability to have a bowel movement, Using more than 1 pad per hour, Shortness of breath, Dizziness, Swelling in the ankles, Chest pain, Increased palpitations (irregular heartbeat), Calf discomfort and Uncontrolled pain Follow Up Care Please Follow Up With: Ees Hand MD When: 1-2 weeks for early 6 week exam Test Results: Test results from this visit will be discussed in further detail at your follow- up appointment, if applicable. Discharge Plan Admission Admit Date/Time: 09/19/24 21:13 Primary Reason for Your Visit: delivery Attending Provider: Ese Hand Primary Care Provider: Pierre Otero Instructions Patient Instructions: After a Vaginal Discharge Orders/Prescriptions Prescriptions: Continued Prenatabs FA 29-1 mg Tablet 1 tab PO DAILY Zyrtec 10 mg capsule 10 mg PO DAILY PRN (Reason: allergies) Discontinued ferrous sulfate [iron] 325 mg (65 mg iron) Tablet 325 mg PO DAILY Referrals / Follow Up: Pierre Otero MD [Primary Care Provider] - Disposition Disposition (needs filled in before D/C Order can be placed): Home, Self Care
--- NOTE | 2024-09-21 10:12 | PCM.DC.SUM ---
Providers Date of Admission: 09/19/24 Date of Discharge: 09/21/24 Primary Care Physician: Pierre Otero MD Reason For Visit: LABOR Diagnosis Discharge Diagnosis (1) (spontaneous vaginal delivery): Status: Acute Code(s): O80 - Encounter for full-term uncomplicated delivery Plan: Doing well . Discharge instructions reviewed with the patient. To follow-up in the office. Medications at Discharge Home Medications vits,calcium no.78-iron fumarate-folic acid 29 mg-1 mg tablet (Prenatabs FA) 1 tab PO DAILY 04/17/22 cetirizine 10 mg capsule (Zyrtec) 10 mg PO DAILY PRN allergies 09/19/24 Hospital Course Procedures - (vaginal delivery) Summary of Care Provided Minutes Spent on Discharge: 10 Hospital Course: Patient came in in spontaneous labor on 09/19/24 and had a vaginal delivery. See delivery note for details. she did well and was discharged to home on day 2 to follow up in office. Weight / BMI Weight Weight: 158 lb 9.6 oz Body Mass Index (BMI) 24.8 ABG / Lab / Microbiology Data 09/19/24 21:25 D/C Instructions Discharge Diet: No restrictions May resume sexual activity in: 6 weeks (nothing in the vagina and no soaking in water) Weight Bearing Status: Weight bearing as tolerated Call your doctor if you observe: Fever of 101 or Higher, Coldness, Increased Pain, Numbness or Tingling, Inability to urinate, Inability to have a bowel movement, Using more than 1 pad per hour, Shortness of breath, Dizziness, Swelling in the ankles, Chest pain, Increased palpitations (irregular heartbeat), Calf discomfort and Uncontrolled pain DC O2, CPAP, BIPAP Needs Home O2 Discharge instructions: No Please Follow Up With: Ese Hand MD When: 1-2 weeks for early 6 week exam Meaningful Use Info Meaningful Use Meaningful Use Diagnoses (Choose all that apply): None applicable Ischemic Stroke Statin Dosing Therapy Reference: STATIN DOSE THERAPY REFERENCE: * Patients > 75 years receive moderate or high dose statin therapy. * Patients 75 years or YOUNGER should receive HIGH intensity statin dose unless contraindicated. You will be required to document reason for non-treatment if statin daily dose does not meet guidelines. HIGH DOSE STATIN THERAPY DAILY Atorvastatin > than or = to 40 mg Rosuvastatin > than or = to 20 mg Amlodipine + Atorvastatin > than or = to 2.5/40 mg Ezetimibe + Simvastatin 10/80 mg Simvastatin 80mg Discharge Plan Admission Admit Date/Time: 09/19/24 21:13 Primary Reason for Your Visit: delivery Attending Provider: Ese Hand Primary Care Provider: Pierre Otero Instructions Patient Instructions: After a Vaginal Discharge Orders/Prescriptions Prescriptions: Continued Prenatabs FA 29-1 mg Tablet 1 tab PO DAILY Zyrtec 10 mg capsule 10 mg PO DAILY PRN (Reason: allergies) Discontinued ferrous sulfate [iron] 325 mg (65 mg iron) Tablet 325 mg PO DAILY Referrals / Follow Up: Pierre Otero MD [Primary Care Provider] - Disposition Disposition (needs filled in before D/C Order can be placed): Home, Self Care
--- NOTE | 2024-09-25 16:07 | NURSING ---
attempted f/up phone call-- no ans, LVM
== END 2024-09-21 10:20 | disposition home or self-care (01) | DRG 807 ==
LOC: WPOUT 21:16 → WP 21:16
PROVIDERS: Admitting Provider Obstetrics & Gynecology; PCP Family Medicine; Referring Provider Obstetrics & Gynecology; Visit Provider Obstetrics & Gynecology
DX: O69.81X0 Labor and delivery complicated by cord around neck, without compression, not applicable or unspecified (principal); Z37.0 Single live birth; Z3A.39 39 weeks gestation of pregnancy; Z87.59 Personal history of other complications of pregnancy, childbirth and the puerperium
CPT/HCPCS: 59025; 59050; 85025; 86780; 86850; 86900; 86901; A4216